=== PATIENT | female | born 1960 | race Caucasian/White ===

== ENCOUNTER 2023-01-10 09:31 | Outpatient (AMB) | payer OTHER, SELFPAY ==
--- NOTE | 2023-01-10 09:40 | A.OFFVIS_ITS ---
Intake Vital Signs 01/10/23 09:41 Height 5 ft 3 in Weight 186 lb 11.704 oz BMI 33.1 BP 100/58 L Blood Pressure Location Rt brachial Position Sitting Pulse 82 Pulse Source Pulse Oximeter Temp 97.5 F Temp Source Skin Pulse Oximetry (%) 96 Oxygen Delivery Method Room Air Intake Visit Reasons: Fibromyalgia Intake Note: New patient presents today for fibromyalgia, sciatic pain, and LLE pain. Previously seen by Dr. Bowser and Dr. Colunga. Notes in chart. c/o low back pain radiating down left leg to foot x 5+ months. 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 Crockett 62-year-old female, here for evaluation of joint pain specific to her left lower leg. She states that this started over a year ago and is not constant. Last week she was given prednisone for 1 week her PCP and was referred for physical therapy. The Prednisone did help the pain to her left lower lateral leg and across the dean, but she says she can feel it coming back now that she has stopped taking the prednisone. X-rays were done of her lower leg/dean area and came back normal per patient. The patient denies Raynaud's phenomenon, butterfly rash on face or other rashes; denies photosensitivity - getting sick or developing a rash from being out in the sun; denies blood or froth in urine; patient denies hx of SOB, chest pain. Patient denies hx of Carditis or Pleuritis. Patient denies any history of DVT/PE. The patient reports never have had to take aspirin or a blood thinner during the successful pregnancies. Denies fevers, excessive fatigue, unexplained weight-loss or weight-gain Denies: thinning hair or hair loss, hx of rashes; Denies: dry, itchy eyes, red burning eyes needing steroids to treat; dry mouth, mouth sores or ulcers; nose bleed; ringing in the ear Denies abdominal pain, blood or mucous in stool; nausea, vomiting and diarrhea , difficulty swallowing, she does have heartburn and takes Omeprazole prn. Denies morning stiffness lasting more than 20 mins. Malignancy screening: denies personal cancer hx. Colonoscopy : 11/2021 Mammogram 2022 [facility] Medical History (Updated 01/11/23 @ 12:39 by Alida Armstrong [facility]) Left sciatic nerve pain Sciatica associated with disorder of lumbar spine Hand pain, right Hand pain, left Primary osteoarthritis involving multiple joints Polyarthralgia Sleep apnea longterm (current) use of non-steroidal anti-inflammatories (nsaid) Sciatic leg pain Fibromyalgia Surgical History (Updated 01/10/23 @ 09:46 by AVRIL Burns) Hx of hysterectomy Family History (Updated 01/10/23 @ 09:44 by AVRIL Burns) Mother Arthritis Diabetes Social History (Updated 01/10/23 @ 09:44 by AVRIL Burns) Household Members: Children Alcohol intake: current Alcohol intake frequency: holidays/special occasions only Patient Tobacco Use Status: Never used Tobacco Current occupational status: employed Current occupation: [employer] at [employer] Female Reproductive History Menstrual Total pregnancies: 5 Ab spontaneous: 1 Review of Systems Const All systems reviewed & are unremarkable except as noted in HPI and below Physical Exam Vital Signs: Last Vital Signs Temp 97.5 F 01/10/23 09:41 Pulse 82 01/10/23 09:41 BP 100/58 L 01/10/23 09:41 Pulse Ox 96 01/10/23 09:41 Oxygen Delivery Method Room Air 01/10/23 09:41 BMI result Body Mass Index 33.1 APPEARANCE: Patient in no acute distress EYES no redness, pupils equal and reactive to light, eyelids normal EARS:? External ear normal, canal clear and tympanic membrane normal. NOSE/SINUS:? Airflow through both nares, no nasal discharge, no bleeding THROAT:? Oral mucosa moist, no ulcerations NECK:? No thyromegaly or masses, no adenopathy, trachea midline. HEART:? Regulrar rhythm, S1-S2 heard, no murmurs, rubs or gallops. LUNG:? Clear to percussion and auscultation ABD:? Normal bowel sounds, no organomegaly, masses or tenderness. EXTREMITIES:? No edema, no calf tenderness, normal peripheral pulses. NEURO:? Oriented and alert x3.? No focal weakness.? Reflexes symmetric.? Gait normal. SKIN:? There are no skin lesions evident. No objective signs of Raynaud's phenomenon. JOINT EXAM: Cervical Spine:.? Full range of motion without pain; no tenderness. Thoracic Spine:.? No scoliosis.? No tenderness on palpation. Lumbar Spine:.? Alignment normal.? Full range of motion without pain, but has stiffness, mild tenderness to left side Chest Wall:.? No tenderness, swelling, increased warmth or erythema. Hands:.? Normal pain-free range of motion with mild tenderness, but no swelling, increased warmth or erythema. 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 Wrists:.? Normal pain-free range of motion with mild tenderness, but no swelling, increased warmth or erythema. Elbows:. Normal pain-free range of motion without tenderness, swelling, increased warmth or erythema. Shoulders:.?? Full range of motion without pain. No weakness, swelling, increased warmth or erythema. Mild tenderness on palpation Hips:.? Full range of motion without pain. Hip bursa:.? No tenderness. Moderate tenderness to right gluteal muscle Knees:.?? Normal pain-free range of motion without tenderness, swelling, increased warmth or erythema.? There is no effusion or crepitation Ankles:.? Normal pain-free range of motion without tenderness, swelling, increased warmth or erythema. Feet:.? Normal pain-free range of motion without tenderness, swelling, increased warmth or erythema. Tender points:? No tenderness to digital palpation at the occiput, trapezius, second rib, lateral epicondyle, knees, greater trochanter and gluteal area bilaterally. ? Assessment & Plan Assessment & Plan (1) Left sciatic nerve pain: Code(s): M54.32 - Sciatica, left side (2) Sciatica associated with disorder of lumbar spine: Code(s): M53.86 - Other specified dorsopathies, lumbar region (3) Primary osteoarthritis involving multiple joints: Code(s): M15.9 - Polyosteoarthritis, unspecified (4) Polyarthralgia: Code(s): M25.50 - Pain in unspecified joint (5) Hand pain, left: Code(s): M79.642 - Pain in left hand (6) Hand pain, right: Code(s): M79.641 - Pain in right hand Plan #Left Sciatic Pain/Lumbar Spine: Ms. Crockett, 62 yoF here to be evaluated for pain, primarily to her left leg. After careful initial review of her history, and physical exam, it does not appear that her joint pains are caused by an underlying autoimmune or inflammatory etiology. Her main complaint today is the pain that travels down the back of her leg, extends from her knee cross her dean to her ankle at times. Her dean and ankle areas hurts the most. On exam there was a left gluteal tenderness and she does says that the pain sometimes travels down her legs from her lower back. Given this presentation, it is reasonable to say this is related to sciatica. I will obtain x-rays of her lumbar back to evaluate for lumbar DDD and nerve compression. Five days prednisone did improve the pain she feel on her lateral lower leg and states it is coming back since stopping prednisone. Patient also says that Tylenol does help her overall pain. I will also obtain some labs for rheumatology workup for additional evaluation. I have prescribed a 10 days course of prednisone. Perhaps there is some nerve irritation that was helped by the prednisone before. She was also referred to PT by her PCP and I agree with this course of action. I discussed with patient that sometimes PT can increase the discomfort, but she will see the benefit if she push through the initial discomfort and also to continue doing the recommended exercises at home. 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 She does have OA to the hands evidenced by prominent [place] nodes on PE with mild tenderness. She does say that her hands sometimes feel stiff in the morning but not more than 10-15 minutes at a time. I will obtain Hand Xrays for further evaluation for any indication of osteopenia, erosions that can occur in the context of chronic inflammation. Patient complained that sometimes she drops things because her hands feel weak to hold on to them. I demonstrated exercises that can help to strengthen the intra osseous muscles and improve fashion styling intern strength. Will consider EMG studies if she becomes bothered by numbness and tingling. Orders: Orders ARIADNE Reflex Titer and Pattern 01/10/23 M15.9 - Polyosteoarthritis, unspecified, M25.50 - Pain in unspecified joint Complement C4 01/10/23 M15.9 - Polyosteoarthritis, unspecified, M25.50 - Pain in unspecified joint, M54.30 - Sciatica, unspecified side Creatine Kinase Total 01/10/23 M15.9 - Polyosteoarthritis, unspecified, M25.50 - Pain in unspecified joint, M54.30 - Sciatica, unspecified side Comprehensive Met. Panel 01/10/23 M15.9 - Polyosteoarthritis, unspecified, M25.50 - Pain in unspecified joint, M54.30 - Sciatica, unspecified side Erythrocyte Sedimentation Rate 01/10/23 M15.9 - Polyosteoarthritis, unspecified, M25.50 - Pain in unspecified joint, M54.30 - Sciatica, unspecified side C Reactive Protein 01/10/23 M15.9 - Polyosteoarthritis, unspecified, M25.50 - Pain in unspecified joint, M54.30 - Sciatica, unspecified side Cyclic Citrullinated Peptide 01/10/23 M15.9 - Polyosteoarthritis, unspecified, M25.50 - Pain in unspecified joint, M54.30 - Sciatica, unspecified side XR hand LT min 3V 01/10/23 M15.9 - Polyosteoarthritis, unspecified, M79.642 - Pain in left hand XR hand RT min 3V 01/10/23 M15.9 - Polyosteoarthritis, unspecified, M79.641 - Pain in right hand Complement C3 01/10/23 M15.9 - Polyosteoarthritis, unspecified, M25.50 - Pain in unspecified joint, M54.30 - Sciatica, unspecified side Complete Blood Count Auto Diff 01/10/23 M15.9 - Polyosteoarthritis, unspecified, M25.50 - Pain in unspecified joint, M54.30 - Sciatica, unspecified side Anti Extractable Nuclear Ag 01/10/23 M15.9 - Polyosteoarthritis, unspecified, M25.50 - Pain in unspecified joint, M54.30 - Sciatica, unspecified side Uric Acid 01/10/23 M15.9 - Polyosteoarthritis, unspecified, M25.50 - Pain in unspecified joint, M54.30 - Sciatica, unspecified side Rheumatoid Factor 01/10/23 M15.9 - Polyosteoarthritis, unspecified, M25.50 - Pain in unspecified joint, M54.30 - Sciatica, unspecified side XR lumbar spine 2-3V 01/10/23 M15.9 - Polyosteoarthritis, unspecified, M53.86 - Other specified dorsopathies, lumbar region Medications: New prednisone 2 tablets per day for 7 days 1 tablet per day for 7 days; see taper instructions 30 tabs 0RF Coding Level of Care Code New Pt Level 4 (12871) Diagnoses Left sciatic nerve pain M54.32 Sciatica associated with disorder of lumbar spine M53.86 Primary osteoarthritis involving multiple joints M15.9 Polyarthralgia M25.50 Hand pain, left M79.642 Hand pain, right M79.641
[2023-01-10 09:41] VITALS: BP 100/58; PULSE 82; TEMP 36.4; O2SAT 96; BMI 33.1
== END 2023-01-10 10:49 | disposition home or self-care (01) ==
PROVIDERS: PCP Family Medicine; Visit Provider Nurse Practitioner Family
DX: M54.32 Sciatica, left side (principal); M53.86 Other specified dorsopathies, lumbar region; M15.9 Polyosteoarthritis, unspecified; M25.50 Pain in unspecified joint; M79.642 Pain in left hand; M79.641 Pain in right hand
CPT/HCPCS: 99204

== ENCOUNTER 2023-01-10 09:31 | Outpatient (REF) | payer OTHER, SELFPAY ==
--- NOTE | ~2023-01-10 | XR_ITS ---
EXAMINATION: XR HAND, RIGHT CLINICAL INFORMATION: Polyosteoarthritis. COMPARISON: None available. TECHNIQUE: PA, lateral, and oblique views of the right hand. FINDINGS: There is bony demineralization. There is a mild ulnar positive variance. There is moderate arthritic change of the second distal interphalangeal joints and marked arthritic change is seen of the fourth and fifth distal interphalangeal joints, with central erosions. There is mild arthritic change of the third and fifth proximal interphalangeal joints. No fracture or dislocation is seen. The proximal and distal carpal rows are intact. There is no focal soft tissue swelling, gas or foreign body. XR/XR hand LT min 3V IMPRESSION: There are arthritic changes of the second through fifth fingers, as detailed. Central erosions of the fourth and fifth distal interphalangeal joints raise the possibility of erosive osteoarthritis, rheumatoid arthritis or psoriasis. Please correlate clinically. EXAMINATION: XR HAND, LEFT CLINICAL INFORMATION: Polyosteoarthritis. COMPARISON: None available. TECHNIQUE: PA, lateral, and oblique views of the left hand. FINDINGS: There is bony demineralization. There is a mild ulnar positive variance. There is mild to moderate osteoarthritic change of the second distal interphalangeal joint. There is marked arthritic change of the third through fifth distal interphalangeal joints. Central erosions are noted of the third and fourth distal interphalangeal joints. There is minimal arthritic change of the second through fourth proximal interphalangeal joints. No fracture or dislocation is seen. The proximal and distal carpal rows are intact. There is no focal soft tissue swelling, gas or foreign body. IMPRESSION: There are arthritic changes of the second through fifth fingers, as detailed. Central erosions of the third and fourth distal interphalangeal joints raise the possibility of erosive osteoarthritis, rheumatoid arthritis or psoriasis. Please correlate clinically.
--- NOTE | ~2023-01-10 | XR_ITS ---
EXAMINATION: XR HAND, RIGHT CLINICAL INFORMATION: Polyosteoarthritis. COMPARISON: None available. TECHNIQUE: PA, lateral, and oblique views of the right hand. FINDINGS: There is bony demineralization. There is a mild ulnar positive variance. There is moderate arthritic change of the second distal interphalangeal joints and marked arthritic change is seen of the fourth and fifth distal interphalangeal joints, with central erosions. There is mild arthritic change of the third and fifth proximal interphalangeal joints. No fracture or dislocation is seen. The proximal and distal carpal rows are intact. There is no focal soft tissue swelling, gas or foreign body. XR/XR hand RT min 3V IMPRESSION: There are arthritic changes of the second through fifth fingers, as detailed. Central erosions of the fourth and fifth distal interphalangeal joints raise the possibility of erosive osteoarthritis, rheumatoid arthritis or psoriasis. Please correlate clinically. EXAMINATION: XR HAND, LEFT CLINICAL INFORMATION: Polyosteoarthritis. COMPARISON: None available. TECHNIQUE: PA, lateral, and oblique views of the left hand. FINDINGS: There is bony demineralization. There is a mild ulnar positive variance. There is mild to moderate osteoarthritic change of the second distal interphalangeal joint. There is marked arthritic change of the third through fifth distal interphalangeal joints. Central erosions are noted of the third and fourth distal interphalangeal joints. There is minimal arthritic change of the second through fourth proximal interphalangeal joints. No fracture or dislocation is seen. The proximal and distal carpal rows are intact. There is no focal soft tissue swelling, gas or foreign body. IMPRESSION: There are arthritic changes of the second through fifth fingers, as detailed. Central erosions of the third and fourth distal interphalangeal joints raise the possibility of erosive osteoarthritis, rheumatoid arthritis or psoriasis. Please correlate clinically.
--- NOTE | ~2023-01-10 | XR_ITS ---
EXAMINATION: XR HAND, RIGHT CLINICAL INFORMATION: Polyosteoarthritis. COMPARISON: None available. TECHNIQUE: PA, lateral, and oblique views of the right hand. FINDINGS: There is bony demineralization. There is a mild ulnar positive variance. There is moderate arthritic change of the second distal interphalangeal joints and marked arthritic change is seen of the fourth and fifth distal interphalangeal joints, with central erosions. There is mild arthritic change of the third and fifth proximal interphalangeal joints. No fracture or dislocation is seen. The proximal and distal carpal rows are intact. There is no focal soft tissue swelling, gas or foreign body. XR/XR lumbar spine 2-3V IMPRESSION: There are arthritic changes of the second through fifth fingers, as detailed. Central erosions of the fourth and fifth distal interphalangeal joints raise the possibility of erosive osteoarthritis, rheumatoid arthritis or psoriasis. Please correlate clinically. EXAMINATION: XR HAND, LEFT CLINICAL INFORMATION: Polyosteoarthritis. COMPARISON: None available. TECHNIQUE: PA, lateral, and oblique views of the left hand. FINDINGS: There is bony demineralization. There is a mild ulnar positive variance. There is mild to moderate osteoarthritic change of the second distal interphalangeal joint. There is marked arthritic change of the third through fifth distal interphalangeal joints. Central erosions are noted of the third and fourth distal interphalangeal joints. There is minimal arthritic change of the second through fourth proximal interphalangeal joints. No fracture or dislocation is seen. The proximal and distal carpal rows are intact. There is no focal soft tissue swelling, gas or foreign body. IMPRESSION: There are arthritic changes of the second through fifth fingers, as detailed. Central erosions of the third and fourth distal interphalangeal joints raise the possibility of erosive osteoarthritis, rheumatoid arthritis or psoriasis. Please correlate clinically.
== END 2023-01-10 09:32 | disposition home or self-care (01) ==
LOC: HO.XRAY 09:31
PROVIDERS: PCP Family Medicine; Visit Provider Nurse Practitioner Family
DX: M15.9 Polyosteoarthritis, unspecified (principal); M79.642 Pain in left hand; M79.641 Pain in right hand; M53.86 Other specified dorsopathies, lumbar region; M54.32 Sciatica, left side
CPT/HCPCS: 72100; 73130

== ENCOUNTER 2023-01-10 10:58 | Outpatient (REF) | payer OTHER, SELFPAY ==
[2023-01-10 13:05] LABS: MANUAL DIFF FLAG NO
[2023-01-10 13:17] LABS: Basophils Absolute Auto 0.1 X10*3/uL (0.0-0.2); Basophils Percent Auto 1.2 % (0-2); Eosinophils Absolute Auto 0.3 X10*3/uL (0.0-0.4); Eosinophils Percent Auto 3.4 % (0-4); Hematocrit 40.7 % (37.0-47.0); Hemoglobin 12.5 g/dl (12.0-16.0); Imm Gran Abs Auto 0.02 X10*3/uL (0.00-0.03); Imm Gran Pct Auto 0.2 % (0.0-0.4); Lymphocytes Absolute Auto 2.3 X10*3/uL (1.2-4.9); Lymphocytes Percent Auto 28.5 % (20-40); Mean Corpuscular HGB Conc 30.7 g/dl (31.0-35.0); Mean Corpuscular Hemoglobin 26.7 pg (27.0-33.0); Mean Platelet Volume 10.7 fL (9.4-12.3); Monocytes Absolute Auto 0.5 X10*3/uL (0.1-1.2); Monocytes Percent Auto 6.4 % (2-11); Neutrophils Absolute Auto 4.8 x10*3/uL (2.0-8.3); Neutrophils Percent Auto 60.3 % (45-73); Platelet Count 245 X10*3/uL (160-400); Red Blood Count 4.68 X10*6/uL (4.20-5.50); Red Cell Distribution Width 15.1 % (11.0-16.0)
[2023-01-10 13:35] LABS: Alanine Aminotransferase 29 U/L (0-31); Albumin Level 4.4 g/dL (3.5-5.0); Alkaline Phosphatase 118 U/L (39-117); Anion Gap 13 (12-20); Aspartate Amino Transferase 22 U/L (5-31); Bilirubin Total 0.2 mg/dL (0.0-1.0); Blood Urea Nitrogen 13 mg/dL (9-16); C Reactive Protein 0.48 mg/dL (< or = 0.50); Calcium 9.3 mg/dL (8.4-10.2); Carbon Dioxide 28 mmol/L (22-29); Chloride 105 mmol/L (96-108); Estimated Glomerular Filt Rate > 60; Glucose Random 96 mg/dL (60-115); Potassium 3.5 mmol/L (3.3-5.1); Sodium 142 mmol/L (135-145); Total Protein 7.2 g/dL (6.5-8.0)
[2023-01-10 13:43] LABS: Rheumatoid Factor < 13.0 IU/mL (<15.0)
[2023-01-10 14:09] LABS: Erythrocyte Sedimentation Rate 16 MM/HR (0-20)
[2023-01-11 13:29] LABS: Cyclic Citrullinated Peptide <16 UNITS
[2023-01-11 17:28] LABS: SM/Ribonucleoprotein Ab <1.0 NEG AI (<1.0 NEG); Smith Protein <1.0 NEG AI (<1.0 NEG)
[2023-01-11 18:09] LABS: Complement C3 151 mg/dL (83-193)
[2023-01-13 11:40] LABS: Anti Nuclear Antibody Screen NEGATIVE (NEGATIVE)
== END 2023-01-10 10:59 | disposition home or self-care (01) ==
LOC: HO.10HDL 10:58
PROVIDERS: Visit Provider Nurse Practitioner Family
DX: M54.30 Sciatica, unspecified side (principal); M25.50 Pain in unspecified joint; M15.9 Polyosteoarthritis, unspecified; M53.86 Other specified dorsopathies, lumbar region; M79.641 Pain in right hand; M79.642 Pain in left hand
CPT/HCPCS: 36415; 80053; 82550; 84550; 85025; 85652; 86038; 86140; 86160; 86200; 86235; 86431

== ENCOUNTER 2023-02-11 08:24 | Outpatient (AMB) | payer OTHER, SELFPAY ==
[2023-02-11 09:49] VITALS: BP 132/74; PULSE 94; TEMP 36; O2SAT 98; BMI 33.5
--- NOTE | 2023-02-11 09:49 | MHC.OFFVIS ---
Intake Vital Signs 02/11/23 09:49 Height 5 ft 3 in Weight 189 lb 6.033 oz BMI 33.5 BP 132/74 Blood Pressure Location Rt brachial Position Sitting Pulse 94 Pulse Source Pulse Oximeter Temp 96.8 F Temp Source Skin Pulse Oximetry (%) 98 Intake Visit Reasons: FM Intake Note: Patient presents today for fibromyalgia. Labs up to date. Accompanied by: Daughter Allergies No Known Allergies Allergy (Verified 02/11/23 09:51) HPI HPI Comments History of Present Illness Details Mrs. Crockett 62-year-old female, here for follow-up of joint pain specific to her left lower leg and hands. The patient reports that the prednisone was very helpful she felt like she could do much work and walked without limping, especially when she gets up or sit down. The patient also said her hands did not hurt and the pain down her left leg was decreased a lot. She has felt an increse in her discomfort after she stopped taking the prednisone. Prior Visit: Mrs. Keira Hatfield-year-old female, here for evaluation of joint pain specific to her left lower leg. She states that this started over a year ago and is not constant. Last week she was given prednisone for 1 week her PCP and was referred for physical therapy. The Prednisone did help the pain to her left lower lateral leg and across the dean, but she says she can feel it coming back now that she has stopped taking the prednisone. X-rays were done of her lower leg/dean area and came back normal per patient. The patient denies Raynaud's phenomenon, butterfly rash on face or other rashes; denies photosensitivity - getting sick or developing a rash from being out in the sun; denies blood or froth in urine; patient denies hx of SOB, chest pain. Patient denies hx of Carditis or Pleuritis. Patient denies any history of DVT/PE. The patient reports never have had to take aspirin or a blood thinner during the successful pregnancies. Denies fevers, excessive fatigue, unexplained weight-loss or weight-gain Denies: thinning hair or hair loss, hx of rashes; Denies: dry, itchy eyes, red burning eyes needing steroids to treat; dry mouth, mouth sores or ulcers; nose bleed; ringing in the ear Denies abdominal pain, blood or mucous in stool; nausea, vomiting and diarrhea , difficulty swallowing, she does have heartburn and takes Omeprazole prn. Denies morning stiffness lasting more than 20 mins. Malignancy screening: denies personal cancer hx. Colonoscopy : 11/2021 Mammogram 2022 [facility] Medical History (Updated 02/11/23 @ 13:45 by Alida Armstrong [facility]) Piriformis syndrome of left side Inflammatory arthritis Left sciatic nerve pain Sciatica associated with disorder of lumbar spine Hand pain, right Hand pain, left Primary osteoarthritis involving multiple joints Polyarthralgia Sleep apnea shelter (current) use of non-steroidal anti-inflammatories (nsaid) Sciatic leg pain Fibromyalgia Surgical History (Updated 01/10/23 @ 09:46 by AVRIL Burns) Hx of hysterectomy Family History Mother Arthritis Diabetes Social History (Updated 01/10/23 @ 09:44 by AVRIL Burns) Household Members: Children Alcohol intake: current Alcohol intake frequency: holidays/special occasions only Patient Tobacco Use Status: Never used Tobacco Current occupational status: employed Current occupation: [employer] at [employer] Review of Systems Const All systems reviewed & are unremarkable except as noted in HPI and below Physical Exam Vital Signs: Last Vital Signs Temp 96.8 F 02/11/23 09:49 BMI result Body Mass Index 33.5 APPEARANCE: Patient in no acute distress, well nourished and groomed HEART:? Regulrar rhythm, S1-S2 heard, no murmurs, rubs or gallops. LUNG:? Clear to percussion and auscultation EXTREMITIES:? No edema, no calf tenderness, normal peripheral pulses. NEURO:? Oriented and alert x3.? No focal weakness.? Reflexes symmetric.? Gait normal. JOINT EXAM: Cervical Spine:.? Full range of motion without pain; no tenderness. Thoracic Spine:.? No scoliosis.? No tenderness on palpation. Lumbar Spine:.? Alignment normal.? Full range of motion without pain, but has stiffness, mild tenderness to left side Chest Wall:.? No tenderness, swelling, increased warmth or erythema. Hands:.? Normal range of motion with mild tenderness, but no swelling or increased warmth. Able to make a full fist and has a good finished carpet inspector strength. Herberdens across all DIPs with some erythema and tenderness. Wrists:.? Normal pain-free range of motion with mild tenderness, but no swelling, increased warmth or erythema. Elbows:. Normal pain-free range of motion without tenderness, swelling, increased warmth or erythema. Shoulders:.?? Full range of motion without pain. No weakness, swelling, increased warmth or erythema. Mild tenderness on palpation Hip bursa:.? No tenderness. Mild Tenderness to right glute, Moderate tenderness to Left gluteal muscle Knees:.?? Normal pain-free range of motion without tenderness, swelling, increased warmth or erythema.? There is no effusion or crepitation Ankles:.? Normal pain-free range of motion without tenderness, swelling, increased warmth or erythema. Feet:.? Normal pain-free range of motion without tenderness, swelling, increased warmth or erythema. Tender points:? No tenderness to digital palpation at the occiput, trapezius, second rib, lateral epicondyle, knees, greater trochanter and gluteal area bilaterally. ? Office Procedures Joint Injection/Drain Joint Injection/Drain Prep: site was prepped using aseptic technique Injected: 80 mg of, Kenalog, with 1 mL of and 1% plain lidocaine Approach Used: anterolateral Procedure: The patient tolerated the procedure well Coding - Sternocleidomastoid/Piriformis Procedure code (CPT) selection complete Results Reviewed Results Reviewed: Laboratory Tests 01/10/23 11:05 MCH 26.7 L MCHC 30.7 L ESR 16 BUN 13 Creatinine 0.73 Uric Acid 5.0 AST 22 ALT 29 Alkaline Phosphatase 118 H C-Reactive Protein 0.48 Rheumatoid Factor < 13.0 Cycl Citrul Peptide IgG <16 January 10 2023 EXAMINATION: XR HAND, RIGHT CLINICAL INFORMATION: Polyosteoarthritis. COMPARISON: None available. TECHNIQUE: PA, lateral, and oblique views of the right hand. FINDINGS: There is bony demineralization. There is a mild ulnar positive variance. There is moderate arthritic change of the second distal interphalangeal joints and marked arthritic change is seen of the fourth and fifth distal interphalangeal joints, with central erosions. There is mild arthritic change of the third and fifth proximal interphalangeal joints. No fracture or dislocation is seen. The proximal and distal carpal rows are intact. There is no focal soft tissue swelling, gas or foreign body. XR/XR hand RT min 3V IMPRESSION: There are arthritic changes of the second through fifth fingers, as detailed. Central erosions of the fourth and fifth distal interphalangeal joints raise the possibility of erosive osteoarthritis, rheumatoid arthritis or psoriasis. Please correlate clinically. EXAMINATION: XR HAND, LEFT CLINICAL INFORMATION: Polyosteoarthritis. COMPARISON: None available. TECHNIQUE: PA, lateral, and oblique views of the left hand. FINDINGS: There is bony demineralization. There is a mild ulnar positive variance. There is mild to moderate osteoarthritic change of the second distal interphalangeal joint. There is marked arthritic change of the third through fifth distal interphalangeal joints. Central erosions are noted of the third and fourth distal interphalangeal joints. There is minimal arthritic change of the second through fourth proximal interphalangeal joints. No fracture or dislocation is seen. The proximal and distal carpal rows are intact. There is no focal soft tissue swelling, gas or foreign body. IMPRESSION: There are arthritic changes of the second through fifth fingers, as detailed. Central erosions of the third and fourth distal interphalangeal joints raise the possibility of erosive osteoarthritis, rheumatoid arthritis or psoriasis. Please correlate clinically. Assessment & Plan Assessment & Plan (1) Seronegative inflammatory arthritis: Code(s): M13.80 - Other specified arthritis, unspecified site (2) Left sciatic nerve pain: Code(s): M54.32 - Sciatica, left side (3) Piriformis syndrome of left side: Code(s): G57.02 - Lesion of sciatic nerve, left lower limb (4) Primary osteoarthritis involving multiple joints: Code(s): M15.9 - Polyosteoarthritis, unspecified (5) Long-term use of immunosuppressant medication: Code(s): Z79.60 - shelter (current) use of unspecified immunomodulators and immunosuppressants Plan #Left Prirformis Muscle/Sciatic Pain: Ms. Crockett, 62 yoF here to be evaluated for pain, primarily to her left leg and hands. Today the patient has marked tenderness to her piriformis muscle on the left side. It seem reasonable that I give her a cortisone injection to help ease her discomfort. We are still waiting for the results of her lumbar x-ray. I encouraged patient to follow through with doing stretches as demonstrated on you to. Her daughter will help her to find some appropriate videos so she can follow. Patient has changed her mind about going to physical therapy saying that it will cause her more discomfort and he really does not help. I reminded patient that this exercises that she would learn at physical therapy would only be beneficial if she maintains the routine at home. Patient also says that Tylenol does help her overall pain. 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 Slight ulnar deviation were also identified in some the IP joints. Though the patient has normal range acute inflammatory markers, it may be beneficial to start her on immunomodulator such as mass of methotrexate or hydroxychloroquine. We will treat as a seronegative Inflammatory arthritis and start on MTX 5 pills QW and reassess with the goal to slow down and reduce the damage to her hands. 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 I discussed with patient the possible side effects to include but are not limited to blood dyscrasias, hepatoxicity, Nausea, vomiting and diarrhea, hair loss, fatigue and brain fog. I advised patient not to be deterred by what she will read about the medication, as we closely monitor and will stop the medication if indicated. Orders: Orders Aspartate Amino Transferase 6 Weeks M19.90 - Unspecified osteoarthritis, unspecified site, Z79.899 - Other long term acute care registered nurse (current) drug therapy Erythrocyte Sedimentation Rate 6 Weeks M19.90 - Unspecified osteoarthritis, unspecified site C Reactive Protein 6 Weeks M19.90 - Unspecified osteoarthritis, unspecified site Alanine Aminotransferase 6 Weeks M19.90 - Unspecified osteoarthritis, unspecified site, Z79.899 - Other [facility] (current) drug therapy Complete Blood Count Auto Diff 6 Weeks M19.90 - Unspecified osteoarthritis, unspecified site, Z79.899 - Other long term acute care registered nurse (current) drug therapy AMB Joint Injection/Aspiration Today G57.02 - Lesion of sciatic nerve, left lower limb, M54.32 - Sciatica, left side Medications: New methotrexate sodium 5 tablets orally every week; 30 tabs 0RF M19.90 - Unspecified osteoarthritis, unspecified site folic acid 1 mg PO DAILY 90 tabs 0RF prednisone 5 mg PO DIRECTED 30 tabs 0RF M19.90 - Unspecified osteoarthritis, unspecified site Coding Level of Care Code Est Pt Level 4 (04996) Diagnoses Seronegative inflammatory arthritis M13.80 Left sciatic nerve pain M54.32 Piriformis syndrome of left side G57.02 Primary osteoarthritis involving multiple joints M15.9 Long-term use of immunosuppressant medication Z79.60 CPT Codes Coding - Joint 3: 63664 - Sternocleidomastoid/Piriformis ([id number])
== END 2023-02-11 10:39 | disposition home or self-care (01) ==
PROVIDERS: PCP Family Medicine; Visit Provider Nurse Practitioner Family
DX: M79.7 Fibromyalgia (principal); G57.02 Lesion of sciatic nerve, left lower limb; M15.8 Other polyosteoarthritis; Z79.60 Long term (current) use of unspecified immunomodulators and immunosuppressants
CPT/HCPCS: 20552; 99214

== ENCOUNTER → 2023-02-11 08:24 | Outpatient (BNVA) | payer OTHER, SELFPAY | PROVIDERS: PCP Family Medicine; Visit Provider Nurse Practitioner Family | DX: M13.80 Other specified arthritis, unspecified site (principal); G57.02 Lesion of sciatic nerve, left lower limb; M79.18 Myalgia, other site; M79.662 Pain in left lower leg; Z79.60 Long term (current) use of unspecified immunomodulators and immunosuppressants | CPT/HCPCS: 20552; J3301 ==

== ENCOUNTER 2023-03-18 10:34 | Outpatient (REF) | payer OTHER, SELFPAY ==
[2023-03-18 10:43] LABS: MANUAL DIFF FLAG NO
[2023-03-18 11:15] LABS: Basophils Percent Auto 0.5 % (0-2); Eosinophils Absolute Auto 0.1 X10*3/uL (0.0-0.4); Eosinophils Percent Auto 1.1 % (0-4); Hematocrit 45.7 % (37.0-47.0); Hemoglobin 14.2 g/dl (12.0-16.0); Imm Gran Abs Auto 0.03 X10*3/uL (0.00-0.03); Imm Gran Pct Auto 0.4 % (0.0-0.4); Lymphocytes Absolute Auto 1.6 X10*3/uL (1.2-4.9); Mean Corpuscular HGB Conc 31.1 g/dl (31.0-35.0); Mean Corpuscular Hemoglobin 26.8 pg (27.0-33.0); Mean Corpuscular Volume 86.4 fL (80.0-98.0); Monocytes Absolute Auto 0.5 X10*3/uL (0.1-1.2); Neutrophils Absolute Auto 5.2 x10*3/uL (2.0-8.3); Platelet Count 250 X10*3/uL (160-400); Red Blood Count 5.29 X10*6/uL (4.20-5.50); Red Cell Distribution Width 17.8 % (11.0-16.0); White Blood Count 7.5 X10*3/uL (4.8-10.8)
[2023-03-18 12:01] LABS: Erythrocyte Sedimentation Rate 12 MM/HR (0-20)
[2023-03-18 12:09] LABS: Alanine Aminotransferase 29 U/L (0-31); Aspartate Amino Transferase 18 U/L (5-31); C Reactive Protein 0.38 mg/dL (< or = 0.50)
== END 2023-03-18 10:35 | disposition home or self-care (01) ==
LOC: HO.LAB 10:34
PROVIDERS: Visit Provider Nurse Practitioner Family
DX: M19.90 Unspecified osteoarthritis, unspecified site (principal); Z79.899 Other long term (current) drug therapy
CPT/HCPCS: 36415; 84450; 84460; 85025; 85652; 86140

== ENCOUNTER 2023-03-25 09:13 | Outpatient (AMB) | payer OTHER, SELFPAY ==
--- NOTE | 2023-03-25 09:22 | A.OFFVIS_ITS ---
Intake Vital Signs 03/25/23 09:24 Height 5 ft 3 in Weight 188 lb 4.396 oz BMI 33.3 BP 110/80 Blood Pressure Location Lt brachial Position Sitting Pulse 68 Pulse Source Pulse Oximeter Temp 97.4 F Temp Source Skin Pulse Oximetry (%) 99 Oxygen Delivery Method Room Air Intake Visit Reasons: Inflammatory Arthritis Intake Note: Patient last seen 02/11/23 by Patti, presents today for follow up and test results. Reports starting MTX. Pourer Off Required: No Accompanied by: Daughter Allergies No Known Allergies Allergy (Verified 03/25/23 09:23) HPI HPI Comments History of Present Illness Details Mrs. Crockett 62-year-old female, here for follow-up of joint pain specific to her left lower leg and hands. At last visit. patient was diagnosed to have seronegative inflammatory arthritis and was started on MTX with a prednisone bridge. She is doing well with no hand pain or tenderness and only has some neuropathic foot pain which she says is help by Gabapentin. She also had a spine injection since last visit. She continues to say she feels a lot better and can work without stopping. Prior Visit: Mrs. Crockett 62-year-old female, here for evaluation of joint pain specific to her left lower leg. She states that this started over a year ago and is not constant. Last week she was given prednisone for 1 week her PCP and was referred for physical therapy. The Prednisone did help the pain to her left lower lateral leg and across the dean, but she says she can feel it coming back now that she has stopped taking the prednisone. X-rays were done of her lower leg/dean area and came back normal per patient. The patient denies Raynaud's phenomenon, butterfly rash on face or other rashes; denies photosensitivity - getting sick or developing a rash from being out in the sun; denies blood or froth in urine; patient denies hx of SOB, chest pain. Patient denies hx of Carditis or Pleuritis. Patient denies any history of DVT/PE. The patient reports never have had to take aspirin or a blood thinner during the successful pregnancies. Denies fevers, excessive fatigue, unexplained weight-loss or weight-gain Denies: thinning hair or hair loss, hx of rashes; Denies: dry, itchy eyes, red burning eyes needing steroids to treat; dry mouth, mouth sores or ulcers; nose bleed; ringing in the ear Denies abdominal pain, blood or mucous in stool; nausea, vomiting and diarrhea , difficulty swallowing, she does have heartburn and takes Omeprazole prn. Denies morning stiffness lasting more than 20 mins. Malignancy screening: denies personal cancer hx. Colonoscopy : 11/2021 Mammogram 2022 [facility] Medical History (Updated 03/25/23 @ 10:24 by CK OlsonP-) Lumbar spondylolysis Seronegative inflammatory arthritis Piriformis syndrome of left side Inflammatory arthritis Left sciatic nerve pain Sciatica associated with disorder of lumbar spine Hand pain, right Hand pain, left Primary osteoarthritis involving multiple joints Polyarthralgia Sleep apnea [facility] (current) use of non-steroidal anti-inflammatories (nsaid) Sciatic leg pain Fibromyalgia Surgical History Hx of hysterectomy Family History Mother Arthritis Diabetes Social History Household Members: Children Alcohol intake: current Alcohol intake frequency: holidays/special occasions only Patient Tobacco Use Status: Never used Tobacco Current occupational status: employed Current occupation: [employer] Reviews & Information [facility] Review of Systems Const All systems reviewed & are unremarkable except as noted in HPI and below Physical Exam Vital Signs: Last Vital Signs Temp 97.4 F 03/25/23 09:24 BMI result Body Mass Index 33.3 APPEARANCE: Patient in no acute distress, well nourished and groomed HEART:? Regulrar rhythm, S1-S2 heard, no murmurs, rubs or gallops. LUNG:? Clear to percussion and auscultation EXTREMITIES:? No edema, no calf tenderness, normal peripheral pulses. NEURO:? Oriented and alert x3.? No focal weakness.? Reflexes symmetric.? Gait normal. JOINT EXAM: Cervical Spine:.? Full range of motion without pain; no tenderness. Thoracic Spine:.? No scoliosis.? No tenderness on palpation. Lumbar Spine:.? Alignment normal.? Full range of motion without pain, but has stiffness, mild tenderness to left side Chest Wall:.? No tenderness, swelling, increased warmth or erythema. Hands:.? Normal range of motion with no more mild tenderness, and no swelling or increased warmth. Able to make a full fist and has a good case advocate strength. Herberdens across all DIPs with no more erythema and tenderness. Wrists:.? Normal pain-free range of motion with no mild tenderness, but no swelling, increased warmth or erythema. Elbows:. Normal pain-free range of motion without tenderness, swelling, increased warmth or erythema. Shoulders:.?? Full range of motion without pain. No weakness, swelling, increased warmth or erythema. Mild tenderness on palpation Hip bursa:.? No more tenderness. Mild Tenderness to right glute, No more Moderate tenderness to Left gluteal muscle Knees:.?? Normal pain-free range of motion without tenderness, swelling, increased warmth or erythema.? There is no effusion or crepitation Ankles:.? Normal pain-free range of motion without tenderness, swelling, increased warmth or erythema. Feet:.? Normal pain-free range of motion without tenderness, swelling, increased warmth or erythema. Tender points:? No tenderness to digital palpation at the occiput, trapezius, second rib, lateral epicondyle, knees, greater trochanter and gluteal area bilaterally. ? Assessment & Plan Assessment & Plan (1) Seronegative inflammatory arthritis: Code(s): M13.80 - Other specified arthritis, unspecified site (2) Left sciatic nerve pain: Code(s): M54.32 - Sciatica, left side (3) Piriformis syndrome of left side: Code(s): G57.02 - Lesion of sciatic nerve, left lower limb (4) Primary osteoarthritis involving multiple joints: Code(s): M15.9 - Polyosteoarthritis, unspecified (5) Long-term use of immunosuppressant medication: Code(s): Z79.60 - computer terminal operator (current) use of unspecified immunomodulators and immunosuppressants (6) Lumbar spondylolysis: Code(s): M43.06 - Spondylolysis, lumbar region Plan #Left Prirformis Muscle/Sciatic Pain/Lumbar Spondylosis: Ms. Crockett, 62 yoF here to be evaluated for pain, primarily to her left leg and hands. The marked tend erness to her piriformis muscle on the left side has resolved and was help by the cortisone injection. The results of her lumbar x-ray did show moderate DDD. She is also helped by recent lumbar injection. I encouraged patient to follow through with doing stretches as demonstrated. Her daughter will help her to find some appropriate videos so she can follow. She can continue with Tylenol as needed. 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 X-ray has reaffirmed that she does have some osteoarthritis to her hand but has also revealed bone demineralization and central erosions that are seen in the context of an inflammatory arthritis. Slight ulnar deviation were also identified in some the IP joints. We will continue with the goal to slow down and reduce further erosions to her hand IP joints. I discuss with patients that flares are possible sometimes after a hard work day or even the weather. She can call in for a prednisone taper to help with flares. 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 We will continue to evaluate LFTs and CBC. I reiterated with patient the possible side effects to include but are not limited to blood dyscrasias, hepatoxicity, Nausea, vomiting and diarrhea, hair loss, fatigue and brain fog. I spent 20 minutes with reviewing chart, evaluating patient and documenting and prescribing Orders: Orders C Reactive Protein Today M13.80 - Other specified arthritis, unspecified site Aspartate Amino Transferase Today M13.80 - Other specified arthritis, unspecified site, Z79.899 - Other [facility] (current) drug therapy Erythrocyte Sedimentation Rate Today M13.80 - Other specified arthritis, unspecified site Alanine Aminotransferase Today M13.80 - Other specified arthritis, unspecified site, Z79.899 - Other [facility] (current) drug therapy Complete Blood Count Auto Diff Today M13.80 - Other specified arthritis, unspecified site, Z79.899 - Other [facility] (current) drug therapy Creatinine Today M13.80 - Other specified arthritis, unspecified site, Z79.899 - Other termite technician (current) drug therapy Medications: Refilled methotrexate sodium 5 tablets orally every week; 90 tabs 1RF M19.90 - Unspecified osteoarthritis, unspecified site Coding Level of Care Code Est Pt Level 3 (73237) Diagnoses Seronegative inflammatory arthritis M13.80 Left sciatic nerve pain M54.32 Piriformis syndrome of left side G57.02 Primary osteoarthritis involving multiple joints M15.9 Long-term use of immunosuppressant medication Z79.60 Lumbar spondylolysis M43.06
[2023-03-25 09:24] VITALS: BP 110/80; PULSE 68; TEMP 36.3; O2SAT 99; BMI 33.3
== END 2023-03-25 09:52 | disposition home or self-care (01) ==
PROVIDERS: PCP Family Medicine; Visit Provider Nurse Practitioner Family
DX: M15.9 Polyosteoarthritis, unspecified (principal); M54.32 Sciatica, left side; Z79.60 Long term (current) use of unspecified immunomodulators and immunosuppressants; M43.06 Spondylolysis, lumbar region
CPT/HCPCS: 99214

== ENCOUNTER → 2023-03-25 09:13 | Outpatient (BNVA) | payer OTHER, SELFPAY | PROVIDERS: PCP Family Medicine; Visit Provider Nurse Practitioner Family ==

== ENCOUNTER 2023-06-14 14:33 | Outpatient (REF) | payer OTHER, SELFPAY ==
[2023-06-14 14:52] LABS: MANUAL DIFF FLAG NO
[2023-06-14 15:32] LABS: Basophils Absolute Auto 0.1 X10*3/uL (0.0-0.2); Basophils Percent Auto 1.6 % (0-2); Eosinophils Absolute Auto 0.3 X10*3/uL (0.0-0.4); Hemoglobin 12.3 g/dl (12.0-16.0); Imm Gran Abs Auto 0.01 X10*3/uL (0.00-0.03); Imm Gran Pct Auto 0.2 % (0.0-0.4); Lymphocytes Absolute Auto 1.3 X10*3/uL (1.2-4.9); Lymphocytes Percent Auto 26.8 % (20-40); Mean Corpuscular HGB Conc 32.4 g/dl (31.0-35.0); Mean Corpuscular Hemoglobin 28.4 pg (27.0-33.0); Mean Corpuscular Volume 87.8 fL (80.0-98.0); Mean Platelet Volume 10.5 fL (9.4-12.3); Monocytes Absolute Auto 0.4 X10*3/uL (0.1-1.2); Monocytes Percent Auto 8.1 % (2-11); Neutrophils Absolute Auto 2.9 x10*3/uL (2.0-8.3); Neutrophils Percent Auto 58.3 % (45-73); Platelet Count 238 X10*3/uL (160-400); Red Blood Count 4.33 X10*6/uL (4.20-5.50); Red Cell Distribution Width 15.1 % (11.0-16.0)
[2023-06-14 16:16] LABS: Erythrocyte Sedimentation Rate 20 MM/HR (0-20)
[2023-06-14 16:46] LABS: Alanine Aminotransferase 28 U/L (0-31); Aspartate Amino Transferase 26 U/L (5-31); C Reactive Protein 0.84 mg/dL (< or = 0.50); Estimated Glomerular Filt Rate > 60
== END 2023-06-14 14:34 | disposition home or self-care (01) ==
LOC: HO.LAB 14:33
PROVIDERS: Visit Provider Nurse Practitioner Family
DX: M13.80 Other specified arthritis, unspecified site (principal); Z79.899 Other long term (current) drug therapy
CPT/HCPCS: 36415; 82565; 84450; 84460; 85025; 85652; 86140

== ENCOUNTER 2023-06-17 09:12 | Outpatient (AMB) | payer OTHER, SELFPAY ==
--- NOTE | 2023-06-17 09:16 | A.OFFVIS_ITS ---
Vital Signs 06/17/23 09:25 Height 5 ft 3 in Weight 189 lb 2.506 oz BMI 33.5 BP 124/90 H Blood Pressure Location Rt brachial Position Sitting Pulse 93 Pulse Source Pulse Oximeter Pulse Oximetry (%) 98 Oxygen Delivery Method Room Air Intake Visit Reasons: Inflammatory Arthritis Intake Note: Patient last seen 03/25/23, presents today for follow up and test results. 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 Crockett 62-year-old female, here for follow-up of joint pain specific to her left lower leg and hands. At last visit. patient was diagnosed to have seronegative inflammatory arthritis and was started on MTX with a prednisone bridge. She is doing well with no hand pain or tenderness and only has some neur opathic foot pain which she says is help by Gabapentin. She also had a spine injection since last visit. She continues to say she feels a lot better and can work without stopping. She now feels some tingling along her forearms. She had stopped taking her lisinopril, omeprazole and gabapentin because she was feeling increasingly stiff in her hands and overall malaised. She says that went away when she stopped those medications. Prior Visit: Mrs. Crockett 62-year-old female, here for evaluation of joint pain specific to her left lower leg. She states that this started over a year ago and is not constant. Last week she was given prednisone for 1 week her PCP and was referred for physical therapy. The Prednisone did help the pain to her left lower lateral leg and across the dean, but she says she can feel it coming back now that she has stopped taking the prednisone. X-rays were done of her lower leg/dean area and came back normal per patient. The patient denies Raynaud's phenomenon, butterfly rash on face or other rashes; denies photosensitivity - getting sick or developing a rash from being out in the sun; denies blood or froth in urine; patient denies hx of SOB, chest pain. Patient denies hx of Carditis or Pleuritis. Patient denies any history of DVT/PE. The patient reports never have had to take aspirin or a blood thinner during the successful pregnancies. Denies fevers, excessive fatigue, unexplained weight-loss or weight-gain Denies: thinning hair or hair loss, hx of rashes; Denies: dry, itchy eyes, red burning eyes needing steroids to treat; dry mouth, mouth sores or ulcers; nose bleed; ringing in the ear Denies abdominal pain, blood or mucous in stool; nausea, vomiting and diarrhea , difficulty swallowing, she does have heartburn and takes Omeprazole prn. Denies morning stiffness lasting more than 20 mins. Malignancy screening: denies personal cancer hx. Colonoscopy : 11/2021 Mammogram 2022 [facility] Medical History (Updated 06/17/23 @ 09:45 by Alida Armstrong, [facility]) Stops taking medication too soon Long-term use of immunosuppressant medication Lumbar spondylolysis Seronegative inflammatory arthritis Piriformis syndrome of left side Inflammatory arthritis Left sciatic nerve pain Sciatica associated with disorder of lumbar spine Hand pain, right Hand pain, left Primary osteoarthritis involving multiple joints Polyarthralgia Sleep apnea residential (current) use of non-steroidal anti-inflammatories (nsaid) Sciatic leg pain Fibromyalgia Surgical History Hx of hysterectomy Family History Mother Arthritis Diabetes Social History Household Members: Children Alcohol intake: current Alcohol intake frequency: holidays/special occasions only Patient Tobacco Use Status: Never used Tobacco Current occupational status: employed 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 Regulrar rhythm, S1-S2 heard, no murmurs, rubs or gallops. LUNG:? Clear to percussion and auscultation EXTREMITIES:? No edema, no calf tenderness, normal peripheral pulses. NEURO:? Oriented and alert x3.? No focal weakness.? Reflexes symmetric.? Gait normal. JOINT EXAM: Cervical Spine:.? Full range of motion without pain; no tenderness. Thoracic Spine:.? No scoliosis.? No tenderness on palpation. Lumbar Spine:.? Alignment normal.? Full range of motion without pain, but has stiffness, mild tenderness to left side Chest Wall:.? No tenderness, swelling, increased warmth or erythema. Hands:.? Normal range of motion with no more mild tenderness, and no swelling or increased warmth. Able to make a full fist and has a good stiff neck loader strength. Herberdens across all DIPs with no more erythema and tenderness. Wrists:.? Normal pain-free range of motion with no mild tenderness, but no swelling, increased warmth or erythema. Elbows:. Normal pain-free range of motion without tenderness, swelling, increased warmth or erythema. Shoulders:.?? Full range of motion without pain. No weakness, swelling, increased warmth or erythema. Mild tenderness on palpation Hip bursa:.? No more tenderness. Mild Tenderness to right glute, No more Moderate tenderness to Left gluteal muscle Knees:.?? Normal pain-free range of motion without tenderness, swelling, increased warmth or erythema.? There is no effusion or crepitation Ankles:.? Normal pain-free range of motion without tenderness, swelling, increased warmth or erythema. Feet:.? Normal pain-free range of motion without tenderness, swelling, increased warmth or erythema. Tender points:? No tenderness to digital palpation at the occiput, trapezius, second rib, lateral epicondyle, knees, greater trochanter and gluteal area bilaterally. ? Results Reviewed Results Reviewed: Laboratory Tests 06/14/23 14:52 WBC 5.0 RBC 4.33 Hgb 12.3 Hct 38.0 Creatinine 0.65 AST 26 ALT 28 C-Reactive Protein 0.84 H Assessment & Plan Assessment & Plan (1) Seronegative inflammatory arthritis: Comment: 01/2023 Start MTX Code(s): M13.80 - Other specified arthritis, unspecified site Category: Medical (2) Left sciatic nerve pain: Code(s): M54.32 - Sciatica, left side Category: Medical (3) Piriformis syndrome of left side: Comment: Injection 02/2023 Code(s): G57.02 - Lesion of sciatic nerve, left lower limb Category: Medical (4) Primary osteoarthritis involving multiple joints: Code(s): M15.9 - Polyosteoarthritis, unspecified Category: Medical (5) Long-term use of immunosuppressant medication: Code(s): 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 X-ray has reaffirmed that she does have some osteoarthritis to her hand but has also revealed bone demineralization and central erosions that are seen in the context of an inflammatory arthritis. Slight ulnar deviation were also identified in some of the IP joints. We will continue with the goal to slow down and reduce further erosions to her hand IP joints. I discuss with patients that flares are possible sometimes after a hard work day or even the weather. She can call in for a prednisone taper to help with flares. #Left Prirformis Muscle/Sciatic Pain/Lumbar Spondylosis: No more marked tenderness to her piriformis muscle on the left side has resolved and was help by the cortisone injection at the 01/2023 visit. The results of her lumbar x- ray did show moderate DDD. She is also helped by recent lumbar injection. I encouraged patient to follow through with doing stretches as demonstrated. Her daughter did help her to find some appropriate videos so she can follow but she has not started them as yet She can continue with Tylenol as needed. #residential Use: CBC and Liver enzymes are WNL on MTX. We will continue to evaluate LFTs and CBC. I reiterated with patient the possible side effects to include but are not limited to blood dyscrasias, hepatoxicity, Nausea, vomiting and diarrhea, hair loss, fatigue and brain fog. #Self Stopped Medications: I discussed with patient that it is not advisable to stop medications without talking with her PCP, especially HTN medications. She is at risk for rebound hypertension which can land her in a crisis. Patient verbalized understanding. She will be following up with PCP soon. 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
[2023-06-17 09:25] VITALS: BP 124/90; PULSE 93; O2SAT 98; BMI 33.5
== END 2023-06-17 09:44 | disposition home or self-care (01) ==
PROVIDERS: PCP Family Medicine; Visit Provider Nurse Practitioner Family
DX: M54.32 Sciatica, left side (principal); M15.9 Polyosteoarthritis, unspecified; Z79.60 Long term (current) use of unspecified immunomodulators and immunosuppressants; M43.06 Spondylolysis, lumbar region; Z91.148 Patient's other noncompliance with medication regimen for other reason
CPT/HCPCS: 99214

== ENCOUNTER → 2023-06-17 09:12 | Outpatient (BNVA) | payer OTHER, SELFPAY | PROVIDERS: PCP Family Medicine; Visit Provider Nurse Practitioner Family ==

== ENCOUNTER 2024-02-07 15:29 | Outpatient (REF) | payer OTHER, SELFPAY ==
[2024-02-07 16:07] LABS: MANUAL DIFF FLAG NO
[2024-02-07 16:44] LABS: Basophils Absolute Auto 0.1 X10*3/uL (0.0-0.2); Basophils Percent Auto 1.4 % (0-2); Eosinophils Absolute Auto 0.3 X10*3/uL (0.0-0.4); Eosinophils Percent Auto 5.8 % (0-4); Hematocrit 39.8 % (37.0-47.0); Hemoglobin 12.7 g/dl (12.0-16.0); Imm Gran Abs Auto 0.02 X10*3/uL (0.00-0.03); Imm Gran Pct Auto 0.4 % (0.0-0.4); Lymphocytes Absolute Auto 1.6 X10*3/uL (1.2-4.9); Lymphocytes Percent Auto 31.6 % (20-40); Mean Corpuscular HGB Conc 31.9 g/dl (31.0-35.0); Mean Corpuscular Volume 87.9 fL (80.0-98.0); Mean Platelet Volume 10.2 fL (9.4-12.3); Monocytes Absolute Auto 0.4 X10*3/uL (0.1-1.2); Monocytes Percent Auto 8.4 % (2-11); Neutrophils Absolute Auto 2.7 x10*3/uL (2.0-8.3); Neutrophils Percent Auto 52.4 % (45-73); Platelet Count 224 X10*3/uL (160-400); Red Blood Count 4.53 X10*6/uL (4.20-5.50); Red Cell Distribution Width 15.5 % (11.0-16.0); White Blood Count 5.1 X10*3/uL (4.8-10.8)
[2024-02-07 17:17] LABS: Anion Gap 14 (12-20); Aspartate Amino Transferase 34 U/L (5-31); Bilirubin Total 0.3 mg/dL (0.0-1.0); Blood Urea Nitrogen 9 mg/dL (9-16); C Reactive Protein 0.92 mg/dL (< or = 0.50); Calcium 9.1 mg/dL (8.4-10.2); Carbon Dioxide 25 mmol/L (22-29); Chloride 109 mmol/L (96-108); Estimated Glomerular Filt Rate > 60; Glucose Random 96 mg/dL (60-115); Potassium 3.9 mmol/L (3.3-5.1); Sodium 144 mmol/L (135-145); Total Protein 6.8 g/dL (6.5-8.0)
[2024-02-07 17:37] LABS: Alanine Aminotransferase 41 U/L (0-31); Alkaline Phosphatase 130 U/L (39-117)
[2024-02-07 17:38] LABS: Erythrocyte Sedimentation Rate 23 MM/HR (0-20)
== END 2024-02-07 15:30 | disposition home or self-care (01) ==
LOC: HO.LAB 15:29
PROVIDERS: PCP Family Medicine; Visit Provider Student in an Organized Health Care Education/Training Program
DX: M13.80 Other specified arthritis, unspecified site (principal)
CPT/HCPCS: 36415; 80053; 85025; 85652; 86140

== ENCOUNTER 2024-02-07 15:29 | Outpatient (AMB) | payer OTHER, SELFPAY ==
--- NOTE | 2024-02-07 15:34 | A.OFFVIS_ITS ---
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 At that time patient was doing well on methotrexate. She also had recently gotten steroid injection in her back with improvement in her back pain. Today patient continues to do well she has no new complaints Rheumatologic History: Patient presented for evaluation of polyarthralgias including joint pain. X- rays showed evidence of erosive osteoarthritis. Currently treating with immunosuppression. ESR and CRP were normal Current Rheumatology Medication(s): Methotrexate 12.5 mg every week Folic acid 1 mg daily [facility] Medical History Stops taking medication too soon Long-term use of immunosuppressant medication Lumbar spondylolysis Seronegative inflammatory arthritis Piriformis syndrome of left side Inflammatory arthritis Left sciatic nerve pain Sciatica associated with disorder of lumbar spine Hand pain, right Hand pain, left Primary osteoarthritis involving multiple joints Polyarthralgia Sleep apnea correction (current) use of non-steroidal anti-inflammatories (nsaid) Sciatic leg pain Fibromyalgia Surgical History Hx of hysterectomy Family History Mother Arthritis Diabetes Social History Household Members: Children Alcohol intake: current Alcohol intake frequency: holidays/special occasions only Patient Tobacco Use Status: Never used Tobacco Current occupational status: employed Current occupation: [employer]isa at [employer] Review of Systems Const Details: Review of Systems Constitutional: Denies fever, chills, weight loss ENT: Denies vision changes, eye pain or eye redness, dental caries, dry mouth GI: Denies nausea, vomiting, diarrhea, abdominal pain, change in BM Pulm: Denies SOB, RUEDA, hemoptysis, wheezing Cards: Denies chest pain, palpitations Skin: Denies Raynaud's, rash, nail changes, photosensitivity, 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 Well appearing and in no apparent painful d istress HEENT Conjunctiva and sclera clear. ?Pupils equal round and reactive to light. ?No lymphadenopathy. ? CHEST/RESPIRATORY SYSTEM Normal respiratory effort and able to speak in complete sentences. ?Clear to auscultation bilaterally. ?No crackles, rales, rhonchi, wheezes heard. CARDIAC SYSTEM Regular rate and rhythm. ?S1 and S2 heard no murmurs. 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 Prominent Heberden's nodes to PIPs noted throughout hands with tenderness to palpation. Otherwise no evidence of synovitis Wrists: ?Full range of motion at the wrists without pain. ?No tenderness to palpation or synovitis noted to the wrists. Elbows: Full range of motion without pain. No tenderness, weakness, swelling, increased warmth or erythema. Shoulders: Full range of motion without pain. No tenderness, weakness, swelling, increased warmth or erythema. Hips: Full range of motion without pain. Hip bursa: No tenderness to palpation Knees: ?Full range of motion. ?No tenderness, swelling, increased warmth or erythema.?No effusion or crepitations Ankles: Full range of motion. ?No tenderness, swelling, increased warmth or erythema.? Feet: ?Negative squeeze test. ?No tenderness to palpation or swelling of the MTPs. Tender points:??No tenderness to palpation of the neck, shoulders, chest, elbows, hips, buttocks or knees. SKIN Skin intact without rashes. 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 Assessment & Plan Assessment & Plan (1) Seronegative inflammatory arthritis: Comment: 01/2023 Start MTX Code(s): M13.80 - Other specified arthritis, unspecified site Category: Medical Plan: #Erosive OA/seronegative inflammatory arthritis Doing well on Mtx Plan - Methotrexate 12.5mg weekly - Folic acid 1mg daily - CBC, CMP, ESR, CRP (2) Long-term use of immunosuppressant medication: Code(s): Z79.60 - correction (current) use of unspecified immunomodulators and immunosuppressants Category: Medical Plan: #Long-term Current Use of Methotrexate Discussed with patient the benefits and risks of methotrexate for managing their rheumatic condition Benefits include reduced pain, reduced mortality, maintenance of remission and reduction of flares Risks include oral ulcers, photosensitivity, hepatotoxicity, hematologic toxicity, pneumonitis, flu-like symptoms (especially day after administration), nodulosis, lymphomas ? Limit alcohol and avoid Bactrim ? Monitoring: ?CBC, BMP, LFTs every 3-4 months and hepatitis serologies as needed Plan I spent 30 minutes reviewing the record and labs, seeing the patient, discussing the treatment plan and documenting in the medical record ? Orders: Orders Complete Blood Count Auto Diff Today M13.80 - Other specified arthritis, unspecified site Comprehensive Met. Panel Today M13.80 - Other specified arthritis, unspecified site C Reactive Protein Today M13.80 - Other specified arthritis, unspecified site Erythrocyte Sedimentation Rate Today M13.80 - Other specified arthritis, unspecified site Medications: Refilled methotrexate sodium 12.5 mg (5 x 2.5 mg) PO QWEEK 65 tabs 1RF 90 days M19.90 - Unspecified osteoarthritis, unspecified site folic acid 1 mg PO DAILY 90 tabs 1RF M13.80 - Other specified arthritis, unspecified site Coding Level of Care Code Tele Est Pt Level 4 (96440) Complex EM visit Add On G2211 Diagnoses Seronegative inflammatory arthritis M13.80 Long-term use of immunosuppressant medication Z79.60
[2024-02-07 15:36] VITALS: BP 128/70; PULSE 76; BMI 31.6
== END 2024-02-07 15:50 | disposition home or self-care (01) ==
PROVIDERS: PCP Family Medicine; Visit Provider Student in an Organized Health Care Education/Training Program
DX: M13.80 Other specified arthritis, unspecified site (principal); Z79.60 Long term (current) use of unspecified immunomodulators and immunosuppressants
CPT/HCPCS: 99214; G2211

== ENCOUNTER 2024-06-22 15:47 | Outpatient (AMB) | payer OTHER, SELFPAY ==
[2024-06-22 15:51] VITALS: BP 128/66; PULSE 77; O2SAT 98; BMI 31.2
--- NOTE | 2024-06-22 15:51 | MHC.OFFVIS ---
Vital Signs 06/22/24 15:51 Height 5 ft 3 in Weight 176 lb 5.917 oz BMI 31.2 BP 128/66 Blood Pressure Location Lt brachial Position Sitting Pulse 77 Pulse Source Pulse Oximeter Pulse Oximetry (%) 98 Oxygen Delivery Method Room Air Intake Visit Reasons: follow up Intake Note: Patient presents for follow up on inflammatory arthritis and lab review. She was last seen on 02/07/[address] Lizama. Allergies No Known Allergies Allergy (Verified 06/22/24 15:55) Medication List - Last Reconciled 06/22/24 by Dorothy Lizama MD folic acid 1 mg PO DAILY lisinopril 5 mg PO DAILY methotrexate sodium 12.5 mg (5 x 2.5 mg) PO QWEEK 90 days omeprazole 20 mg PO DAILY PRN HPI Comments Details: Patient is a 63-year-old female with hypertension and seronegative inflammatory arthritis/erosive OA who presents today for follow up Interval History: Patient last seen 02/07/24 with wi. At that time she was following up for her seronegative inflammatory arthritis/erosive osteoarthritis on methotrexate and folic acid. She had no complaints and was in remission Today, Patient reports she continues to do well Rheumatologic History: Patient presented for evaluation of polyarthralgias including joint pain. X-rays showed evidence of erosive osteoarthritis. Currently treating with immunosuppression. 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 (nsaid) Sciatic leg pain Fibromyalgia Surgical History Hx of hysterectomy Family History Mother Arthritis Diabetes Social History Household Members: Children Alcohol intake: current Alcohol intake frequency: holidays/special occasions only Patient Tobacco Use Status: Never used Tobacco Current occupational status: employed Current occupation: [employer] at [employer] Review of Systems Const Details: Review of Systems Constitutional: Denies fever, chills, weight loss ENT: Denies vision changes, eye pain or eye redness, dental caries, dry mouth GI: Denies nausea, vomiting, diarrhea, abdominal pain, change in BM Pulm: Denies SOB, RUEDA, hemoptysis, wheezing Cards: Denies chest pain, palpitations Skin: Denies Raynaud's, rash, nail changes, photosensitivity, CLEARING INSPECTOR: Denies headaches, weakness, paresthesias, recurrent falls MSK: as per HPI All other systems reviewed and are unremarkable except noted above Physical Exam Vital Signs: Last Vital Signs Pulse 77 06/22/24 15:51 BP 128/66 06/22/24 15:51 Pulse Ox 98 06/22/24 15:51 Oxygen Delivery Method Room Air 06/22/24 15:51 BMI result Body Mass Index 31.2 Vital signs reviewed Physical Examination CONSTITUITIONAL Patient alert and cooperative. Well appearing and in no apparent painful distress HEENT Conjunctiva and sclera clear. ?Pupils equal round and reactive to light. ?No lymphadenopathy. ? CHEST/RESPIRATORY SYSTEM Normal respiratory effort and able to speak in complete sentences. ?Clear to auscultation bilaterally. ?No crackles, rales, rhonchi, wheezes heard. CARDIAC SYSTEM Regular rate and rhythm. ?S1 and S2 heard no murmurs. ?Radial pulses intact bilaterally MSK Hands: ?Able to make a fist. No synovitis noted to the MCPs, PIPs or DIPs. ?No tenderness to palpation of these joints. No deformities noted. ? Wrists: ?Full range of motion at the wrists without pain. ?No tenderness to palpation or synovitis noted to the wrists. Elbows: Full range of motion without pain. No tenderness, weakness, swelling, increased warmth or erythema. Shoulders: Full range of active range of motion without pain. No tenderness, weakness, swelling, increased warmth or erythema. Hips: Full range of motion without pain. Hip bursa: No tenderness to palpation Knees: ?Full range of motion. ?No tenderness, swelling, increased warmth or erythema.?No effusion or crepitations Ankles: Full range of motion. ?No tenderness, swelling, increased warmth or erythema.? Feet: ?Negative squeeze test. ?No tenderness to palpation or swelling of the MTPs. Tender points:?No tenderness to palpation of the bilateral trapezius, supraspinatus, greater trochanters, anterior costochondral junctions, bilateral gluteal areas, bilateral suboccipital muscle insertions SKIN Skin intact without rashes. Results Reviewed Results Reviewed: Laboratory Tests 02/07/24 16:05 WBC 5.1 RBC 4.53 Hgb 12.7 Hct 39.8 Plt Count 224 ESR 23 H Sodium 144 Potassium 3.9 Chloride 109 H Carbon Dioxide 25 BUN 9 Creatinine 0.66 AST 34 H ALT 41 H Alkaline Phosphatase 130 H C-Reactive Protein 0.92 H Immunology labs 01/10/23 11:05 Rheumatoid Factor < 13.0 Cycl Citrul Peptide IgG <16 ARIADNE Screen NEGATIVE Assessment & Plan Assessment & Plan (1) Seronegative inflammatory arthritis: Comment: 01/2023 Start MTX Code(s): M13.80 - Other specified arthritis, unspecified site Category: Medical Plan: #Erosive OA/seronegative inflammatory arthritis Patient is a 63-year-old female with seronegative inflammatory arthritis/erosive osteoarthritis here today for follow up. Currently in remission. Lab work done in January showed mild transaminitis. 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 Limit alcohol and avoid Bactrim ? Monitoring: ?CBC, BMP, LFTs every 3-4 months and hepatitis serologies as needed Plan I spent 30 minutes reviewing the record and labs, seeing the patient, discussing the treatment plan and documenting in the medical record ? Orders: Orders Comprehensive Met. Panel 4 Months M13.80 - Other specified arthritis, unspecified site Erythrocyte Sedimentation Rate 4 Months M13.80 - Other specified arthritis, unspecified site Complete Blood Count Auto Diff Today M13.80 - Other specified arthritis, unspecified site Comprehensive Met. Panel Today M13.80 - Other specified arthritis, unspecified site Erythrocyte Sedimentation Rate Today M13.80 - Other specified arthritis, unspecified site Hepatitis A,B,C Profile Today M13.80 - Other specified arthritis, unspecified site T Spot TB Today M13.80 - Other specified arthritis, unspecified site Complete Blood Count Auto Diff 4 Months M13.80 - Other specified arthritis, unspecified site C Reactive Protein 4 Months M13.80 - Other specified arthritis, unspecified site C Reactive Protein Today M13.80 - Other specified arthritis, unspecified site Medications: Refilled folic acid 1 mg PO DAILY 90 tabs 1RF M13.80 - Other specified arthritis, unspecified site methotrexate sodium 12.5 mg (5 x 2.5 mg) PO QWEEK 90 days 65 tabs 1RF M19.90 - Unspecified osteoarthritis, unspecified site Coding Level of Care Code Est Pt Level 4 (47866) Complex EM visit Add On G2211 Diagnoses Seronegative inflammatory arthritis M13.80 Long-term use of immunosuppressant medication Z79.60
--- OUTSIDE RECORDS SUMMARY | 2024-06-22 16:10 | XMS_ITS | Data Portability ---
Author Organization [facility], , [facility], OFFICE Address [address] [place] [address] [address] Lab Technician Name Role Phone KEHINDE MAN. [facility] Re[facility] SARA MCKEON Primary Care Provider [phone] Assessment Encounter Date Assessment Date Assessment LastModified by Organization Details LastModified Time 01/03/2023 01/03/2023 We completed you r Medicare Wellness exam today. This was an opportunity to assess your overall well being including your ability to care for yourself, your mobility, memory, mental health, as well as your safety. With advancing age, it is important to assign someone in your life as your Health Care Proxy (HCP). This person should know what is important to you and what your wishes are for medical procedures if you cannot communicate your wishes yourself (severe illness, unconsciousness). We discussed having a completed Health Care Proxy form today. In addition, today we started a conversation about your End of Life wishes. These conversations will continue over the years. Please consider reading the book, Being Mortal by Waylon Price to help frame future conversations. We discussed the purpose of a MOLST form (Medical Orders for Life Sustaining Treatment) and completed this form if appropriate per your wishes. Vision and Hearing are senses that are critically important as we age. When impaired, they can contribute to memory loss, falls, and make it harder to drive, talk to family and friends, and engage in the world. Please get your vision checked yearly and your hearing checked when you start to notice hearing loss. We discussed approaches to lowering your risk of heart disease and stroke . Your blood pressure is higher than goal consider losing weight and lowering your salt intake. Your cholesterol is higher than goal, work on eating more fruits and vegetables and avoiding saturated fats. We discussed cancer screening you may need as well as vaccines to prevent infections. Colon Cancer : Your risk of colon cancer is average. Due for colorectal screenin. If you are not planning to have a colonoscopy please screen with stool cards yearly. Breast Cancer : Breast Cancer Screening (mammography). Next mammogram due: 2022. last 05/2021 Cervical Cancer Screening (pap test). Next pap due: 2022. Influenza Vaccine : Flu shot yearly. Tetanus Vaccine : Every 10 years. Due: 2025. The following vaccines are available from your pharmacy: Pneumonia Vaccine : PCV20: once after age 65. Shingles Vaccine : 2 shots after age 50. Covid Vaccine : Make sure you have received the most up to date covid vaccine. Your personal health goal for the year is: We completed your Medicare Wellness exam today. This was an opportunity to assess your overall well being including your ability to care for yourself, your mobility, memory, mental health, as well as your safety. With advancing age, it is important to assign someone in your life as your Health Care Proxy (HCP). This person should know what is important to you and what your wishes are for medical procedures if you cannot communicate your wishes yourself (severe illness, unconsciousness). We discussed having a completed Health Care Proxy form today. In addition, today we started a conversation about your End of Life wishes. These conversations will continue over the years. Please consider reading the book, Being Mortal by Waylon Price to help frame future conversations. We discussed the purpose of a MOLST form (Medical Orders for Life Sustaining Treatment) and completed this form if appropriate per your wishes. Health Goal - get rid of sciatica pain. Not available 01/03/2023 14:04:34 03/10/2023 03/10/2023 Onychogryphosis bilateral hallux [email or web address] Not available 03/10/2023 11:04:17 01/17/2024 01/17/2024 General Health Maintenance -Schedule next Pap smear for 2024. -Plan for wellness visit and labs today. If lab is closed, patient to return for labs. Not available 01/21/2024 09:17:14 04/04/2024 04/04/2024 Pt seen for Tommy Cognitive Assessment (MoCA) Version 8.1 Pt scored 21/30 which is in the range of Mild Cognitive Impairment. Pts who test in this range often exhibit mild forgetfulness, mild disorientation, and mild impairment in problem solving. On interview: Pt's daughter Nelson was present. Pt describes being very forgetful especially with appts, and taking medicine. FamHx father w dementia. Pt living with daughter since her divorce last year. 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 No memory issues at work. Previously an tafe [place] n [place]. Mini Cog in Dec 2023: 07/02 Findings were shared and explained. We discussed the idea that this may be more of an issue of attn and concentration than with working memory. Pt exhibits no cognitive issues when she is focused at work. Given pt's family history and her scores on the MoCA and MiniCog, I recommend watchful waiting and a re-evaluation in one year. Pt and daughter know they can contact me or PCP in the interim if new concerns should arise. [email or web address] Not available 04/04/2024 15:21:15 Plan of Treatment Reminders Order Date Submit Date Provider Last Modified By Organization Details Last Modified Time Details Appointments Follow Up, 30 2024 11:30A M Sara Mckeon NP Not available Not available Not available Mammog rowan, Screen ing 2024 10:30A M [facility] Mammography Not available Not available Not available LAB Follow -Up 2024 08:25A M [facility] Lab Not available Not available Not available Peewee Visit 30 2024 11:00A M Sara Mckeon NP Not available Not available Not available Lab HbA1c (hemog lobin A1c), blood 2023 024 [facility], [address] [place], [address], 01/18/2024 10:02:14 lipid panel, serum 2023 024 [facility], [address] [place], [address], 05/04/2023 13:44:41 CBC 2023 024 [facility], [address] [place] [address], [id number], 05/04/2023 12:20:18 HbA1c (hemog lobin A1c), blood 2023 024 [facility], [address] [place] [address], [id number], 05/04/2023 14:22:21 CMP, serum or plasma 2023 024 [facility], [address] [place] [address], [id number], 05/04/2023 13:44:39 Referral otolar yngolo gist referr al - Sleep apnea, insura nce will not cover magdy e, pls discus s altern atives . 2023 024 [email or web address] [facility], [address] [place] [address], [id number], 01/22/2024 09:46:[address] referr al - Fibrom yalgia - sciati ca worst pain - LLEPre v seen by Dr. Venkatesh montague & Dr. Arley Bowser 2022 023 [facility], [address] [place] [address] Jony Coe, [place], [address], 01/11/2023 13:20:03 spine center referr al - Pls book with Nelly Charles Chroni c sciati ca x yrs withou t relief . Pls eval. 2022 023 [email or web address] [facility], [address] [place] [address], [id number], 01/10/2023 15:38:53 physic al therap ist referr al - Sciati c pain x yrs; worsen ing; please see for PT & will be seeing provid er for tx & plan. 2022 023 [email or web address] [facility], [address] [place] [address], [id number], 01/03/2023 21:18:05 Procedures None record ed. Surgeries None record ed. Imaging XR, ankle - Inner ankle pain with wt bearin g. Front and side view 2023 024 [facility] (Imaging), [address], [place], [address], 01/17/2024 14:41:54 XR, foot - Inner ankle pain with wt bearin g. Forefo ot & side foot views. 2023 024 [facility] (Imaging), [address], [place], [address], 01/17/2024 14:42:27 MAMMO, screen ing, tomosy nthesi s, bilate ral - 2nd Look Consul t/Diag Mammo/ US Breast /Guide d Asp/Br east Bx/Cli p Placem ent, as clinic ally indica lamin. 2023 024 [facility] (Imaging), [address], [place], [address], 01/19/2024 11:59:39 MAMMO, screen ing, tomosy nthesi s, bilate ral - Note to Provid er: 2nd look consul t/Diag Mammo/ US Breast /Guide d Asp/Br east Bx as clinic ally indica lamin. 2022 023 [facility] (Imaging), [address], [place], [address], 05/24/2023 12:57:27 Medication Orders omepra zole 20 mg capsul e,adarsh yed releas e 2023 024 CORY Alfredo [address] ([facility] 827), [address] [place], [place], [id number], 01/17/2024 12:41:27 lisino pril 5 mg tablet 2023 024 CORY Alfredo [address] ([facility] 827), [address] [place], [place], [id number], 01/17/2024 12:46:01 acetam inophe n 325 mg tablet 2022 023 [email or web address] [address] ([facility] [address] [place], [place], [id number], 01/17/2024 12:08:41 predni sone 20 mg tablet 2022 [facility] [address] ([facility] [address] [place], [place], [id number], 01/17/2024 12:08:50 Patient TargetsNo targets recorded. Patient Instructions Encounter Date Encounter Id Patient Instructions Last Modified By Organization Details Last Modified Time 01/03/2023 [id number] preventing falls : care instructions [email or web address] Not available 01/03/2023 13:31:11 hearing loss: care instructions [email or web address] Not available 01/03/2023 13:31:11 advance directives: care instructions [email or web address] Not available 01/03/2023 13:31:11 Well Visit, Ages 18 to 65: Care Instructions [email or web address] Not available 01/03/2023 13:31:11 well visit, wome n 50 to 65: care instructions [email or web address] Not available 01/03/2023 13:31:12 03/10/2023 [id number] Patient to retur n if symptoms persist/recur. 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 Colunga & Dr. Arley Bowser Referring Physician: Sara Mckeon [facility], Encounter Date: 01/03/2023 Spine Center Referral for Sc iatica Pls book with Nelly Reyes - Chronic sciatica x yrs without relief. Pls eval. Referring Physician: Sara Mckeon [facility], Encounter Date: 01/03/2023 Physical Therapist Referral for Sciatica Sciatic pain x yrs; worsening; please see for PT & will be seeing provider for tx & plan. Referring Physician: Sara Mckeon [facility], Encounter Date: 01/03/2023 Supply Assistant Referral fo r Sleep apnea Sleep apnea, insurance will not cover machine, pls discuss alternatives. Referring Physician: Sara Mckeon [facility], Encounter Date: 01/17/2024 Results Created Date Observation Date Name Description Value Unit Range Abnormal Flag Note LastModifiedBy Organization Detail LastModifiedTime 05/04/19 24 05/04/2023 CBC WBC 6.64 K/? ? ?L 3.98-1 0.04 Not Available [address], [address], 05/04/2023 12:20:18 05/04/19 24 05/04/2023 CBC RBC 4.59 M/? ? ?L 3.93-5 .22 Not Available [address], [address], 05/04/2023 12:20:18 05/04/19 24 05/04/2023 CBC HGB 12.7 g/dL 11.2-1 5.7 Not Available [address], [address], 05/04/2023 12:20:18 05/04/19 24 05/04/2023 CBC HCT 40.6 % 34.1-4 4.9 Not Available [address], [address], 05/04/2023 12:20:18 05/04/19 24 05/04/2023 CBC MCV 88.5 fL 79.4-9 4.8 Not Available [address], [address], 05/04/2023 12:20:18 05/04/19 24 05/04/2023 CBC MCH 27.7 pg 25.6-3 2.2 Not Available [address], [address], 05/04/2023 12:20:18 05/04/19 24 05/04/2023 CBC MCHC 31.3 g/dL 32.2-3 5.5 low Not Available [address], [address], 05/04/2023 12:20:18 05/04/19 24 05/04/2023 CBC plt 246 K/? ? ?L 182-36 9 Not Available [address], [address], 05/04/2023 12:20:18 05/04/19 24 05/04/2023 CBC MPV 10.8 fL 9.4-12 .3 Not Available [address], [address], 05/04/2023 12:20:18 05/04/19 24 05/04/2023 CBC neut% 73.9 % 34.0-7 1.1 high Not Available [address], [address], 05/04/2023 12:20:18 05/04/19 24 05/04/2023 CBC neut# 4.92 1.56-6 .13 Not Available [address], [address], 05/04/2023 12:20:18 05/04/19 24 05/04/2023 CBC lymph % 15.1 % 19.3-5 1.7 low Not Available [address], [address], 05/04/2023 12:20:18 05/04/19 24 05/04/2023 CBC lymph # 1.00 K/? ? ?L 1.18-3 .74 low Not Available [address], [address], 05/04/2023 12:20:18 05/04/19 24 05/04/2023 CBC mono% 6.8 % 4.7-12 .5 Not Available [address], [address], 05/04/2023 12:20:18 05/04/19 24 05/04/2023 CBC mono# 0.45 0.24-0 .56 Not Available [address], [address], 05/04/2023 12:20:18 05/04/19 24 05/04/2023 CBC eo% 2.3 % 0.7-5. 8 Not Available [address], [address], 05/04/2023 12:20:18 05/04/19 24 05/04/2023 CBC eo# 0.15 0.04-0 .36 Not Available [address], [address], 05/04/2023 12:20:18 05/04/19 24 05/04/2023 CBC baso% 1.4 % 0.1-1. 2 high Not Available [address], [address], 05/04/2023 12:20:18 05/04/19 24 05/04/2023 CBC baso# 0.09 0.00-0 .08 high Not Available [address], [address], 05/04/2023 12:20:18 05/04/19 24 05/04/2023 CBC RDW-CV 16.1 % 11.7-1 4.4 high Not Available [address], [address], 05/04/2023 12:20:18 05/04/19 24 05/04/2023 CBC Ig% 0.500 % 0.000- 1.500 Ig % >0.5 Indic ates possi ble Left Shift Not Available [address], [address], 05/04/2023 12:20:18 05/04/19 24 05/04/2023 CBC Ig# 0.030 0.000- 0.093 Not Available [address], [address], 05/04/2023 12:20:18 05/04/19 24 05/04/2023 CBC NRBC% 0.0 % 0.0-0. 2 Not Available [address], [address], 05/04/2023 12:20:18 05/04/19 24 05/04/2023 CBC NRBC# 0.000 0.000- 0.012 Not Available [address], [address], 05/04/2023 12:20:18 05/04/19 24 05/04/2023 COMP. METAB OLIC PANEL glucose 118 mg/dL 70-100 high Not Available [address], [address], 05/04/2023 13:44:39 05/04/19 24 05/04/2023 COMP. METAB OLIC PANEL BUN 8 mg/dL 7-18 Not Available [address], [address], 05/04/2023 13:44:39 05/04/19 24 05/04/2023 COMP. METAB OLIC PANEL creatinine 0.6 mg/dL 0.8-1. 3 low Not Available [address], [address], 05/04/2023 13:44:39 05/04/19 24 05/04/2023 COMP. METAB OLIC PANEL B/C 13.3 ratio Not Available [address], [address], 05/04/2023 13:44:39 05/04/19 24 05/04/2023 COMP. METAB OLIC PANEL GFR >=60ML /MIN mL/mi n normal >=60m L/min - Michelle l or midly reduc ed <60mL /min- Decre ased kidne y funct ion <15mL /min - Kidne y failu re [facility] calcu lates estim ated Glome rular Filtr ation Rate (eGFR ) using the Chron ic Kidne y Disea se Epide miolo gy Colla borat ion (CKD- EPI) Equat ion (Leo r et. al 2020) as recom beata d by the Natio nal Kidne y Found ation . eGFR is based on age, serum creat inine , and sex. CKD-E PI does not calcu late eGFR by race, does not apply to child ted (age <18 years ), and shoul d not be used in pregn uyen. Not Available [address], [address], 05/04/2023 13:44:39 05/04/19 24 05/04/2023 COMP. METAB OLIC PANEL sodium 142 mmol/ L 136-14 5 Not Available [address], [address], 05/04/2023 13:44:39 05/04/19 24 05/04/2023 COMP. METAB OLIC PANEL potassium 4.1 mmol/ L 3.5-5. 1 Not Available [address], [address], 05/04/2023 13:44:39 05/04/19 24 05/04/2023 COMP. METAB OLIC PANEL chloride 106 mmol/ L 96-107 Not Available [address], [address], 05/04/2023 13:44:39 05/04/19 24 05/04/2023 COMP. METAB OLIC PANEL anion gap 9.7 5.0-15 .0 Not Available [address], [address], 05/04/2023 13:44:39 05/04/19 24 05/04/2023 COMP. METAB OLIC PANEL CO2 26 mmol/ L 21-32 Not Available [address], [address], 05/04/2023 13:44:39 05/04/19 24 05/04/2023 COMP. METAB OLIC PANEL calcium 9.0 mg/dL 8.5-10 .3 Not Available [address], [address], 05/04/2023 13:44:39 05/04/19 24 05/04/2023 COMP. METAB OLIC PANEL total protein 6.6 g/dL 6.4-8. 2 Not Available [address], [address], 05/04/2023 13:44:39 05/04/19 24 05/04/2023 COMP. METAB OLIC PANEL albumin 3.6 g/dL 3.4-5. 0 Not Available [address], [address], 05/04/2023 13:44:39 05/04/19 24 05/04/2023 COMP. METAB OLIC PANEL globulin 3.0 g/dL Not Available [address], [address], 05/04/2023 13:44:39 05/04/19 24 05/04/2023 COMP. METAB OLIC PANEL A/G 1.2 ratio 0.8-2. 0 Not Available [address], [address], 05/04/2023 13:44:39 05/04/19 24 05/04/2023 COMP. METAB OLIC PANEL total bilirubin 0.40 mg/dL 0.00-1 .00 Not Available [address], [address], 05/04/2023 13:44:39 05/04/19 24 05/04/2023 COMP. METAB OLIC PANEL AST 25 U/L 0-37 Not Available [address], [address], 05/04/2023 13:44:39 05/04/19 24 05/04/2023 COMP. METAB OLIC PANEL ALT 39 U/L 6-63 Not Available [address], [address], 05/04/2023 13:44:39 05/04/19 24 05/04/2023 COMP. METAB OLIC PANEL alk. phos. 120 U/L 50-136 Not Available [address], [address], 05/04/2023 13:44:39 05/04/19 24 05/04/2023 LIPID PANEL cholesterol 256 mg/dL <200 mg/dl Abeba able 200-2 39 mg/dl Borde rline High >240 mg/dl High Not Available [address], [address], 05/04/2023 13:44:41 05/04/19 24 05/04/2023 LIPID PANEL triglyceride s 176 mg/dL <150 mg/dL Michelle l 150-1 99 mg/dL Borde rline High 200-4 99 mg/dL High >500 mg/dL Very High Not Available [address], [address], 05/04/2023 13:44:41 05/04/19 24 05/04/2023 LIPID PANEL direct HDL 54 mg/dL <40 mg/dl - Major Risk for CHD >60 mg/dl - Negat donnie Risk for CHD Not Available [address], [address], 05/04/2023 13:44:41 05/04/19 24 05/04/2023 DIREC T LDL direct LDL 160 mg/dL RISK CATEG ORY LDL GOAL _ CHD or CHD Risk Equiv alent s <100 mg/dl (10-y ear risk >20%) 2+ Risk Facto rs <130 mg/dl (10-y ear risk <= 20%) 0-1 Risk Facto r? <160 mg/dl ? Almos t all peopl e with 0-1 risk facto r have a 10 year risk <10%, thus 10 year risk asses ment in peopl e with 0-1 risk facto r is not grey sheppard. Not Available [address], [address], 05/04/2023 13:44:42 05/04/19 24 05/04/2023 HGB A1C hemoglobin A1C 6.5 % 4.8-6. 0 high Goal: <7% in Patie nts with Diabe keaton An A1c betwe en 5.7-6 .4% is ident ified as pre-d iabet es and sugge sts risk for progr essio n to diabe keaton Two a1c value s of 6.5% or highe r is consi stent with a diagn osis of diabe keaton but may need furth er confi rmati on Not Available [address], [address], 05/04/2023 14:22:21 05/04/19 24 05/04/2023 HGB A1C estimated average glucose 139.9 mg/dL Not Available [address], [address], 05/04/2023 14:22:21 01/17/20 24 01/18/2024 HGB A1C hemoglobin A1C 6.3 % 4.8-6. 0 high Goal: <7% in Patie nts with Diabe keaton An A1c betwe en 5.7-6 .4% is ident ified as pre-d iabet es and sugge sts risk for progr essio n to diabe keaton Two a1c value s of 6.5% or highe r is consi stent with a diagn osis of diabe keaton but may need furth er confi rmati on Not Available [address], [address], 01/18/2024 10:02:14 01/17/20 24 01/18/2024 HGB A1C estimated average glucose 134.1 mg/dL Not Available [address], [address], 01/18/2024 10:02:14 01/17/20 24 01/19/2024 LIPID PANEL cholesterol 222 mg/dL <200 mg/dl Abeba able 200-2 39 mg/dl Borde rline High >240 mg/dl High Not Available [address], [address], 01/19/2024 12:13:58 01/17/20 24 01/19/2024 LIPID PANEL triglyceride s 139 mg/dL <150 mg/dL Michelle l 150-1 99 mg/dL Borde rline High 200-4 99 mg/dL High >500 mg/dL Very High Not Available [address], [address], 01/19/2024 12:13:58 01/17/20 24 01/19/2024 LIPID PANEL direct HDL 59 mg/dL <40 mg/dl - Major Risk for CHD >60 mg/dl - Negat donnie Risk for CHD Not Available [address], [address], 01/19/2024 12:13:58 01/17/20 24 01/19/2024 DIREC T LDL direct LDL 129 mg/dL RISK CATEG ORY LDL GOAL _ CHD or CHD Risk Equiv alent s <100 mg/dl (10-y ear risk >20%) 2+ Risk Facto rs <130 mg/dl (10-y ear risk <= 20%) 0-1 Risk Facto r? <160 mg/dl ? Almos t all peopl e with 0-1 risk facto r have a 10 year risk <10%, thus 10 year risk asses ment in peopl e with 0-1 risk facto r is not neces valarie. Not Available [facility] [address] [facility], [place], [address], 01/19/2024 12:13:59 01/06/20 23 09/14/2021 home sleep testi ng (PROC ) No observ ation record ed. [facility] [address] [place], [address], 02/09/2023 08:58:35 01/17/20 24 01/17/2024 XR, ankle CLINIC AL HISTOR Y: Left ankle pain. TECHNI QUE: Three views of the left ankle obtain ed. COMPAR TOMASA: None. FINDIN GS: There is no acute fractu re, sublux ation or disloc ation. The joint spaces are preser cheryl. There are phlebo liths in the soft tissue s IMPRES ARTURO: No acute bone abnorm ality. Karla garcia Physic jerri: Ethan Humphreys [facility] (Imaging) [address], [place], [address], 01/22/2024 02:57:03 01/17/20 24 01/17/2024 XR, foot CLINIC AL HISTOR Y: Left foot pain. TECHNI QUE: AP, and latera l views of the left foot obtain ed. COMPAR TOMASA: None. FINDIN GS: There is no acute fractu re or disloc ation. The joint spaces are preser cheryl. The soft tissue s are unrema rkable . IMPRES ARTURO: No acute bone injury . Karla garcia Physic jerri: Ethan nagel [facility] (Imaging) [address] [place], [address], 01/22/2024 02:57:04 Result Notes None recorded. Problems Name Problem SNOMED Code Status Onset Date Resolution Date Notes Provider Name and Address Organization Details Recorded Time Mixed hyperlipide gilson 831705352 Active 2022 Katharina York RN null, [facility] 3 12:08:37 Morbid obesity 106380496 Active 2022 Katharina York RN null, [facility] 3 12:08:50 Recurrent major depression 28492754 Active 2022 Katharina York RN null, [facility] 3 12:09:09 Gastroesoph ageal reflux disease 603935669 Active 2022 Katharina York RN null, [facility] 3 12:09:20 Eczema 13274747 Active 2022 Katharina York RN null, [facility] 3 12:10:13 Prolapsed lumbar interverteb ral disc 006493459 Active 2022 Katharina York RN null, [facility] 3 12:11:01 Sciatica 45089654 Active 2022 Katharina York RN null, [facility] 3 12:11:16 Chronic neck pain 5500889664157 Active 2022 Katharina York RN null, [facility] 3 12:11:36 Primary fibromyalgi a syndrome 99003466 Active 2022 Katharina York RN null, [facility] 3 12:12:07 Sleep apnea 20783653 Active 2022 Katharina York RN null, [facility] 3 12:12:22 Poor short-term memory 206525869 Active 2022 Katharina York RN null, [facility] 3 12:12:35 Chronic abdominal pain 495153430 Active 2022 Katharina York RN null, [facility] 3 12:12:58 Problem Notes None recorded. Procedures Surgical History Date Name Laterality Status Provider Name and Address Organization Details Recorded Time 3 Damian - Colonoscopy completed Mohit Salgado MD [address] [place] [address], [id number], [facility] 03/22/2022 14:14:17 Imaging Results Imaging Date Name Status [facility] by [facility] Details LastModified Time 09/14/2021 home sleep testing (PROC) completed [facility] [address] , [place], [address], 02/09/2023 08:58:35 01/17/2024 XR, ankle completed [facility] (Imaging) [address] [place], [address], 01/22/2024 02:57:03 01/17/2024 XR, foot completed [facility] (Imaging) [address] [place], [address], 01/22/2024 02:57:04 Procedure Notes None recorded. Medical Equipment None Reported. Allergies No known drug allergies Medications Name Sig Start Date Stop Date Status Note LastModified by Organization Details LastModified Time Prescript ion - Prior Authoriza tion Request 01/18 completed Not Available Not Available Not Available nystatin 100,000 unit/mL oral suspensio n Take 5 mL 4 TIMES A DAY by oral route for 15 to 21 days. active Not Available Not Available No t Available acetamino phen 325 mg tablet TAKE 2 TABLETS BY MOUTH EVERY 12 HOURS NEEDED 01/16 completed Not Available Not Available Not Available prednison e 10 mg tablet Take 60mg (6 tabs) x 1 day, 50x 1 day, 40x 1 day, 30mgx 1day and 20x 1 day and 10x 1 day 02/06 completed finished 12/31/20 jmm Not Available Not Available Not Available tizanidin e 2 mg tablet TK 1 T PO BID PRF MUSCLE PAIN 03/24 completed Not Available Not Available Not Available ammonium lactate 12 % lotion APPLY TOPICALL Y TO THE AFFECTED AREA TWICE DAILY DIRECTED 06/10 completed PRN 09/08/21 mK Not Available Not Available Not Available citalopra m 40 mg tablet TAKE 1 TABLET BY MOUTH EVERY DAY 2010 active Not Available Not Available Not Avai lable ibuprofen 800 mg tablet Take 1 tablet every day by oral route as needed for 30 days. 01/16 completed Not taking - since starting on methotre xate Feb 2023 05/04/23 drm Not Available Not Available Not Available alprazola m 1 mg tablet TAKE 1 TABLET BY MOUTH 1 HOUR BEFORE PROCEDUR E 05/03 completed Not Available Not Available Not Available hydrocodo ne 5 mg-acetam inophen 325 mg tablet TK 1 TO 2 TS PO Q 6 H PRN P active Not Available Not Available No t Available prednison e 20 mg tablet TAKE 1 TABLET BY MOUTH EVERY DAY FOR 5 DAYS DIRECTED 01/16 completed resumes as needed. By [employer] logist. Not Available Not Available Not Available prednison e 5 mg tablet TAKE 1 TABLET BY MOUTH EVERY DAY DIRECTED 01/16 completed Not Available Not Available Not Available Nexium 40 mg capsule,d elayed release Take 1 capsule every day by oral route for 90 days. 2023 active Not Available Not Available Not Avai lable Flonase 50 mcg/actua tion nasal spray,[facility] [place] 1 spray every day by intranas al route. 2009 active Not Available Not Available Not Avai lable tramadol 50 mg tablet TAKE 1 TO 2 TABLETS BY MOUTH FOUR TIMES DAILY NEEDED FOR PAIN 04/06 completed Not Available Not Available Not Available triamcino lone acetonide 0.1 % topical cream APPLY A THIN FILM TO THE AFFECTED AREA TWICE DAILY 02/06 completed Not using 12/18/20 PP Not Available Not Available Not Available meloxicam 7.5 mg tablet TAKE 1 TABLET BY MOUTH BEFORE WORK(ONC E DAILY) NEEDED FOR PAIN 06/10 completed Not Available Not Available Not Available oxycodone -acetamin ophen 5 mg-325 mg tablet 03/29 completed Not Available Not Available Not Available amoxicill in 875 mg tablet TAKE 1 TABLET BY MOUTH TWICE DAILY UNTIL FINISHED 11/19 completed Not Available Not Available Not Available citalopra m 20 mg tablet TAKE 1.5 TABLETS BY MOUTH EVERY MORNING 2008 active Not Available Not Available Not Avai lable lorazepam 0.5 mg tablet TAKE 1-2 TABLETS BY MOUTH AN HOUR PRIOR TO PROCEDUR E. 06/10 completed Not Available Not Available Not Available methotrex ate sodium 2.5 mg tablet TAKE 5 TABLETS BY MOUTH EVERY WEEK active Not Available Not Available No t Available erythromy amauri 5 mg/gram (0.5 %) eye ointment APPLY A 1 CM RIBBON IN AFFECTED EYE(S) THREE TIMES DAILY 02/06 completed Not Available Not Available Not Available nystatin 100,000 unit/gram topical cream APPLY TO THE AFFECTED AREA(S) BY TOPICAL ROUTE 2 TIMES PER DAY for 2 weeks active Not Available Not Available No t Available orphenadr ine citrate ER 100 mg tablet,ex tended release TK 1 T PO BID PRN FOR MUSCLE SPASM active Not Available Not Available No t Available gabapenti n 300 mg capsule TAKE 1 CAPSULE BY MOUTH TWICE DAILY 01/16 completed Not Available Not Available Not Available omeprazol e 20 mg capsule,d elayed release Take 1 capsule daily for 90 days 2023 active PRN Not Available Not Available Not Avai lable folic acid 1 mg tablet active Not Available Not Available Not Available bisacodyl 5 mg tablet,de layed release TAKE 4 TABLETS BY MOUTH AT ONE TIME DIRECTED 06/10 completed Not Available Not Available Not Available lisinopri l 5 mg tablet TAKE 1 TABLET BY MOUTH EVERY DAY DIRECTED 01/16 completed Not Available Not Available Not Available gabapenti n 100 mg capsule CAN TAKE 1 TO 3 CAPSULES BY MOUTH BEFORE BEDTIME FOR 30 DAYS 11/19 completed not using 11/19/20 [email or web address] Not Available Not Available Not Available lorazepam 1 mg tablet TAKE 1 TO 2 TABLETS BY MOUTH ONE HOUR PRIOR TO PROCEDUR E 11/19 completed Not Available Not Available Not Available ibuprofen 600 mg tablet TAKE 1 TABLET BY MOUTH THREE TIMES DAILY WITH FOOD NEEDED FOR PAIN 04/25 completed Not Available Not Available Not Available diazepam 5 mg tablet TAKE 1 TABLET BY MOUTH EVERY 6 HOURS NEEDED FOR SPASM 09/08 completed Not Available Not Available Not Available cyclobenz aprine 5 mg tablet TAKE 1 TO 2 TABLETS BY MOUTH EVERY NIGHT AT BEDTIME NEEDED FOR PAIN 06/10 completed Not Available Not Available Not Available duloxetin e 20 mg capsule,d elayed release TAKE 1 CAPSULE BY MOUTH EVERY DAY 05/03 completed 10/26/22- states she is not taking. From sports med Not Available Not Available Not Available duloxetin e 30 mg capsule,d elayed release TK 1 C PO BID 03/24 completed Not Available Not Available Not Available Lyrica 100 mg capsule TAKE 1 CAPSULE BY MOUTH 2x daily 2008 active Not Available Not Available Not Avai lable Lyrica 150 mg capsule TK 1 C PO BID 03/24 completed Not Available Not Available Not Available GaviLyte- G 236 gram-22.7 4 gram-6.74 gram-5.86 gram oral solution MIX AND DRINK DIRECTED 06/10 completed Not Available Not Available Not Available Fish Oil 1,000 mg (120 mg-180 mg) capsule Take 1 capsule every day by oral route in the morning for 90 days. 06/10 completed not taking 09/08/21 mK Not Available Not Available Not Available COVID-19 test specimen collectio n TEST DIRECTED TODAY 06/10 completed Not Available Not Available Not Available BinaxNOW COVID-19 Ag Self Test kit Use as Directed on the Package 06/10 completed Not Available Not Available Not Available Vitals None Recorded Social History Question Answer Notes LastModified by Organizat ion Details LastModified Time Tobacco Smoking Status Never Smoker Katharina York RN [facility], [facility] 03/15/2022 12:15:40 Do You Have An Advance Directive? No Form Given [email or web address] Information not available 05/01/2009 What Is Your Level Of Alcohol Consumption? None [email or web address] Information not available 06/10/2022 Are You Blind Or Do You Have Difficulty Seeing? Yes Wears Glasses Information not available 04/06/2013 What Is Your Level Of Caffeine Consumption? Moderate 2-3 Cups Of Coffee Daily. Information not available 05/20/2020 How Much Tobacco Do You Chew? None Information not available 01/14/2011 Are You Currently Employed? Yes Information not available 06/09/2021 Are You Deaf Or Do You Have Serious Difficulty Hearing? Yes Information not available 04/06/2013 What Type Of Diet Are You Following? REGULAR [id number] Information not available 01/14/2011 Which Illicit Or Recreational Drugs Have You Used? None [email or web address] Information not available 04/06/2016 Do You Or Have You Ever Used E-cigarettes Or Vape? Never Used Electronic Cigarettes Information not available 05/08/2020 What Is Your Occupation? [employer]ke [email or web address] Information not available 12/18/2020 Have There Been Any Changes To Your Family Or Social Situation? No Information not available 06/09/2021 How Many Days In The Past Year Have You Had A Heavy Drinking Consumption (4+ Female, 5+ Male)? 0 Information not available 04/25/2018 Are There Any Guns Present In Your Home? No Information not available 04/06/2013 Live Alone Or With Others? With Others Living With Daughter Information not available 09/12/2008 Patient Has Health Care Proxy Signed And In Chart Yes Information not available 12/10/2020 MOLST Form Signed And In Chart 01/03/2023 Information not available 01/05/2023 Marital Status Informati on not available 12/19/2012 Mosquito Repellent Used Routinely Yes Information not available 04/25/2018 What Was The Date Of Your Most Recent Tobacco Screening? 01/17/2024 [email or web address] Information not available 01/17/2024 How Many Children Do You Have? 4 Information not available 12/19/2012 What Is Your Relationship Status? Single Information not available 06/09/2021 Do You Use Your Seat Belt Or Car Seat Routinely? Yes Information not available 05/12/2021 Seat Belts Used Routinely Yes Information not available 04/06/2013 Are You Sexually Active? Yes Information not available 01/14/2011 Smoke Alarm In Home Yes [email or web address] Information not available 04/06/2013 Do You Have Smoke And Carbon Monoxide Detectors In Your Home? Yes Information not available 06/09/2021 Are You Passively Exposed To Smoke? No Information not available 06/09/2021 Do You Or Have You Ever Used Smokeless Tobacco? Never Used Smokeless Tobacco Information not available 05/08/2020 How Much Tobacco Do You Smoke? No Information not available 06/25/2020 What Types Of Sporting Activities Do You Participate In? None Information not available 04/15/2017 General Stress Level Medium Information not available 05/20/2020 Do You Use Any Illicit Or Recreational Drugs? No Information not available 05/12/2021 Do You Use Sunscreen Routinely? Yes Information not available 04/25/2018 How Many Years Have You Smoked Tobacco? 0 Information not available 06/25/2020 Do You Or Have You Ever Used Any Other Forms Of Tobacco Or Nicotine? No Information not available 06/09/2021 Sex: Female Functional Status Question Answer Note LastModified by Organizat ion Details LastModified Time Do you have difficulty walking or climbing stairs? Yes climbing stairs/knees hurt Information not available 04/06/2013 Do you have difficulty doing errands alone? No Information not available 04/06/2013 Do you have difficulty dressing or bathing? No Information not available 04/06/2013 What is your exercise level? Moderate Information not available 06/09/2021 Mental Status Question Answer Note LastModified by Organizat ion Details LastModified Time Do you have difficulty concentrating, remembering or making decisions? Yes Information n ot available 04/06/2013 Family History Relationship Description Onset Age of this Age Resolved Age Notes LastModified by Organization Details LastModified Time Father Dementia 93 100 Not availab le 01/17/2024 12:34:11 Father Heart disease later in life [email or web address] Not available 04/06/2016 09:39:24 Mother Diabetes mellitus 75 BKA [email or web address] Not available 2015 09:08:13 Mother Hypertensive disorder Mom age 75 Not available 05/20/2020 09:37:27 Sister Diabetes mellitus [email or web address] Not available 2015 09:08:13 Brother Diabetes mellitus [email or web address] Not available 2015 09:08:13 Notes:No colon, breast or ov ran cancer No early CAD No depression or alcoholism Medical History Condition Response Fibromyalgia Y Irritable Bowel Syndrome Y Depression Y Gynecological History Statement/Question Response Hysterectomy N History of Abnormal Pap N Date of LMP 02/28/2009 Obstetrics History GPAL:G 0 P 0 0 0 0 Past Encounters Encounter ID Performer Location Encounter Start Date Encounter Closed Date Diagnosis/Indication Diagnosis SNOMED-CT Code Diagnosis ICD10 Code Diagnosis Note [id number] , [facility], OFFICE [address] [place] [address] 05/14/2005 11:51:40 05/15/2005 10:52:08 [id number] LAB - [facility] [address] [place] [address] 05/14/2005 13:18:22 05/14/2005 13:18:46 [id number] Radiology , [facility] [address] [place] [address] 05/17/2005 12:37:25 05/18/2005 08:43:10 [id number] , [facility] [address] [place] [address] 05/24/2005 11:37:06 03/20/2008 02:02:29 [id number] [facility], OFFICE [address] [facility] GERRI POLO62[address] 6 05/26/2005 10:51:49 05/26/2005 14:13:59 [id number] Physical Therapy, [facility] [address] G[place] Dougherty62-[address] 6 06/01/2005 13:24:56 03/20/2008 02:02:29 [id number] [facility], OFFICE [address] [facility] [place] [address] 06/07/2005 12:58:30 06/07/2005 15:56:01 [id number] [facility], OFFICE [address] [facility] [place] [address] 07/02/2005 10:37:08 07/02/2005 16:38:08 [id number] [facility] , [facility] [address] GER[place] Dougherty62-146 6 07/02/2005 11:51:54 07/05/2005 09:19:58 [id number] [facility], OFFICE [address] [facility] [place] [address] 01/19/2006 09:30:38 01/19/2006 16:27:47 [id number] [facility] - [facility] 70 [facility] [place] [address] 01/19/2006 10:55:38 01/19/2006 10:56:39 [id number] Eye Care, [facility] Mati [facility] [place] [address] 02/07/2006 12:40:50 02/07/2006 16:41:05 [id number] Optical, [facility] 70 [facility] [place] [address] 02/07/2006 15:04:40 02/07/2006 16:58:08 [id number] [facility], OFFICE [address] [facility] GERRI POLO62-146 6 02/07/2006 14:50:59 02/08/2006 11:02:51 [id number] Radiology , [facility] GERRI Lorenz62-146 6 04/22/2006 10:34:07 04/25/2006 09:49:52 [id number] Physical Therapy, [facility] GERRI Lorenz62-146 6 06/27/2006 10:09:04 06/30/2006 13:55:12 [id number] Physical Therapy, [facility] GERRI Lorenz-146 6 07/06/2006 11:18:38 07/07/2006 08:41:28 [id number] Physical Therapy, [facility] GERRI Lorenz146 6 07/13/2006 11:24:29 07/13/2006 15:35:35 [id number] Physical Therapy, [facility] GERRI Lorenz62-146 6 07/20/2006 11:15:59 07/20/2006 15:57:12 [id number] Physical Therapy, [facility] GERRI Lorenz-146 6 07/27/2006 11:14:14 07/27/2006 14:14:08 [id number] Physical Therapy, [facility] GERRI Lorenz62-146 6 08/03/2006 11:12:55 08/04/2006 11:16:07 [id number] LAB - [facility] GERRI Lorenz62-146 6 12/08/2007 07:10:44 12/08/2007 07:10:56 [id number] [facility], OFFICE [address] G[place]RI CLARK62-146 6 12/07/2007 13:52:29 03/20/2008 02:02:29 [id number] PHOEBE [facility], OFFICE [address] [place] [address] 12/12/2007 13:25:36 03/20/2008 02:02:29 [id number] PHOEBE [facility], OFFICE [address] G[place] CLARK62-146 6 12/08/2007 15:02:37 12/08/2007 15:49:59 [id number] [facility], OFFICE [address] [place] [address] 09/12/2008 13:26:50 09/18/2008 08:13:27 [id number] [facility], OFFICE [address] [place] [address] 09/27/2008 08:47:54 10/01/2008 14:28:56 [id number] LAB - [facility] [address] [place] [address] 09/12/2008 14:02:07 09/12/2008 14:02:16 [id number] LAB - [facility] [address] [place] [address] 09/27/2008 09:36:56 09/27/2008 09:37:06 [id number] John Salter [facility], OFFICE [address] [place] [address] 02/25/2009 15:22:34 02/26/2009 11:36:32 [id number] Mariza Greer MA , [facility], OFFICE [address] [place] [address] 05/01/2009 13:50:59 05/02/2009 13:22:28 [id number] [facility] , [facility] [address] [place] [address] 05/05/2009 12:46:07 05/06/2009 13:46:24 [id number] [facility], OFFICE [address] [place] [address] 6 05/09/2009 11:37:40 05/09/2009 14:39:41 [id number] [facility], OFFICE [address] [place] [address] 6 05/13/2009 11:06:24 05/15/2009 09:38:00 [id number] [facility] , [facility] [address] [place] [address] 05/13/2009 11:51:40 05/14/2009 11:34:53 [id number] John Salter [facility], OFFICE [address] [place] [address] 08/05/2009 10:50:02 08/06/2009 10:08:01 [id number] Radiology , [facility] [address] [place] [address] 08/14/2009 08:14:12 08/15/2009 10:57:33 [id number] [facility], [address]ICE [address] [place] [address] 6 08/15/2009 13:37:51 08/15/2009 17:40:02 [id number] Radiology , [facility] [address] [place] [address] 02/18/2010 11:45:31 02/19/2010 11:33:20 [id number] , [facility], OFFICE [address] [place] [address] 02/24/2010 15:58:29 02/26/2010 08:25:35 [id number] Radiology , [facility] [address] [place] [address] 6 02/25/2010 13:58:54 02/26/2010 14:13:57 [id number] , [facility], OFFICE [address] [place] [address] 02/26/2010 16:11:16 03/02/2010 13:51:42 [id number] Mariza Calderon NP , [facility], OFFICE [address] [place] [address] 12/19/2012 11:20:40 12/19/2012 12:04:19 [id number] Mariza Calderon NP , [facility], OFFICE [address] [place] [address] 03/14/2013 10:04:05 03/14/2013 10:43:03 [id number] Kerline Negron , [facility], OFFICE [address] [place] [address] 6 04/06/2013 09:46:21 04/06/2013 10:50:52 [id number] Nancy Hill [facility] -[facility] [address] [place] [address] 05/29/2013 08:40:19 06/01/2013 15:28:26 [id number] , [facility], OFFICE [address] [place] [address] 08/08/2013 15:27:27 08/08/2013 16:35:30 [id number] HAWK Martinez , [facility], OFFICE [address] [place] [address] 08/09/2013 10:45:20 08/09/2013 13:53:36 [id number] Kehinde Man , PT Physical Therapy, [address] [address] 09/11/2013 10:04:17 09/13/2013 07:47:38 [id number] Kehinde Man , PT Physical Therapy, [facility] [address] [place] [address] 6 09/18/2013 10:44:22 09/18/2013 12:47:48 [id number] , [facility], OFFICE [address] [place] [address] 6 10/02/2013 10:31:00 10/02/2013 11:00:44 [id number] Yuli Moncada , [facility], OFFICE [address] [place] [address] 12/10/2013 11:54:41 12/10/2013 12:41:35 [id number] Yuli Moncada Physical Therapy, [address] [address] 12/10/2013 12:43:24 12/13/2013 07:34:55 [id number] Kehinde Man , PT Physical Therapy, [address] [address] 12/13/2013 09:37:27 12/14/2013 15:29:00 [id number] Sarah Dunbar , [facility], OFFICE [address] [place] [address] 09/18/2014 13:54:32 09/18/2014 14:08:25 [id number] Ellyn Duarte , [facility], OFFICE [address] [place] [address] 6 09/24/2014 08:15:05 09/24/2014 09:05:50 [id number] Leeanne Yoo Podiatry, [address] [address] 10/29/2014 11:07:16 11/25/2014 13:31:49 [id number] MIGUEL Sadler, [facility], OFFICE [address] [place] [address] 04/04/2015 08:36:12 04/04/2015 09:53:28 [id number] MIGUEL Sadler, [facility], OFFICE [address] [place] [address] 05/02/2015 09:28:04 05/02/2015 10:50:48 [id number] Yolis cervantes, PT Physical Therapy, [address] [address] 06/10/2015 09:49:24 06/10/2015 12:57:53 [id number] MIGUEL Sadler, [facility], OFFICE [address] [place] [address] 06/11/2015 10:43:28 06/16/2015 08:37:57 [id number] Yolis cervantes, PT Physical Therapy, [facility] [address] [place] [address] 6 06/18/2015 10:35:37 06/18/2015 12:32:31 [id number] MIGUEL Sadler, [facility], OFFICE [address] [place] [address] 6 08/29/2015 14:04:37 08/29/2015 14:54:53 [id number] Yolis cervantes, PT Physical Therapy, [address] [address] 09/08/2015 08:30:52 09/09/2015 07:24:13 [id number] MIGUEL Sadler, [facility], OFFICE [address] [place] [address] 10/21/2015 09:22:39 10/24/2015 15:02:03 [id number] Kehinde Renteria, DPM Podiatry, [address] [address] 10/22/2015 08:45:13 11/13/2015 13:37:11 [id number] Ann Reyez, OD Eye Care, [address] [address] 02/12/2016 13:54:58 03/12/2016 11:25:31 [id number] Kiersten Ruiz NP FP, [facility], OFFICE [address] [place] [address] 04/06/2016 08:31:40 04/06/2016 11:27:32 [id number] Kehinde Man , PT Physical Therapy, [address] [address] 6 04/13/2016 10:51:06 04/14/2016 11:52:58 [id number] Kehinde Man , PT Physical Therapy, [address] [address] 6 04/22/2016 10:08:43 04/22/2016 12:12:00 [id number] Kehinde Man , PT Physical Therapy, [facility] [address] [place] [address] 6 04/29/2016 09:40:24 04/30/2016 10:36:00 [id number] Kehinde Man , PT Physical Therapy, [address] [address] 05/04/2016 08:34:20 05/04/2016 09:33:47 [id number] Kehinde Man , PT Physical Therapy, [address] [address] 05/10/2016 11:32:22 05/10/2016 13:31:34 [id number] Kelsie Tejeda MD , [facility], OFFICE [address] [place] [address] 03/24/2017 14:25:18 03/25/2017 08:39:05 [id number] HAWK Martinez , [facility], OFFICE [address] [place] [address] 03/29/2017 09:32:58 03/29/2017 10:53:33 [id number] Ann Reyez, OD Eye Care, [facility] [address] [place] [address] 03/30/2017 08:29:16 03/30/2017 09:12:26 [id number] HAWK Martinez , [facility], OFFICE [address] [place] [address] 04/15/2017 10:19:08 04/15/2017 11:28:48 [id number] HAWK Martinez , [facility], OFFICE [address] [place] [address] 10/18/2017 10:55:00 10/18/2017 12:40:48 [id number] Fay Steele DPM Podiatry, [address] [address] 12/20/2017 13:33:04 12/22/2017 10:39:26 [id number] , [facility], OFFICE [address] [place] [address] 01/18/2018 08:50:11 01/20/2018 10:32:17 [id number] Ann Reyez, OD Eye Care, [address] [address] 04/03/2018 09:27:17 04/03/2018 10:32:54 [id number] HAWK Martinez, [facility], OFFICE [address] [place] [address] 04/25/2018 11:30:57 04/25/2018 12:19:07 [id number] MIGUEL Mcmahon, [facility], OFFICE [address] [place] [address] 05/08/2020 09:51:39 05/09/2020 13:18:58 [id number] Angela Mcintosh, PT Physical Therapy, [facility] [address] [place] [address] 05/13/2020 13:36:11 05/14/2020 08:45:33 [id number] Angela Mcintosh, PT Physical Therapy, [address] [address] 05/19/2020 11:47:01 05/19/2020 14:13:03 [id number] MIGUEL Mcmahon, [facility], OFFICE [address] [place] [address] 05/20/2020 08:59:57 05/26/2020 13:00:50 [id number] Angela Mcintosh, PT Physical Therapy, [address] [address] 6 05/22/2020 12:31:25 05/22/2020 16:19:48 [id number] HAWK Martinez, [facility], OFFICE [address] [place] [address] 6 06/25/2020 12:13:55 06/26/2020 10:19:21 [id number] Ann Reyez, OD Eye Care, [address] [place] [address] 09/02/2020 09:26:52 09/02/2020 13:56:40 [id number] MD PHOEBE Singh, [facility], OFFICE [address] [place] [address] 11/19/2020 11:19:43 11/19/2020 11:58:06 [id number] JESUS Mon, [facility], OFFICE [address] [place] [address] 12/09/2020 09:52:07 12/09/2020 10:16:45 [id number] Angela Mcintosh, PT Physical Therapy, [facility] [address] [place] [address] 12/10/2020 11:50:47 12/11/2020 14:45:05 [id number] Angela Mcintosh, PT Physical Therapy, [address] [address] 12/17/2020 10:03:47 12/17/2020 13:17:07 [id number] MIGUEL Mcmahon, [facility], OFFICE [address] [place] [address] 12/18/2020 09:30:14 12/23/2020 15:32:50 [id number] Angela Mcintosh, PT Physical Therapy, [address] [address] 12/24/2020 10:12:03 12/25/2020 09:43:24 [id number] Kelsie Tejeda MD , [facility], OFFICE [address] [place] [address] 12/31/2020 10:24:56 12/31/2020 12:05:50 [id number] Angela Mcintosh, PT Physical Therapy, [address] [address] 01/08/2021 09:37:02 01/08/2021 11:33:27 [id number] Angela Mcintosh, PT Physical Therapy, [address] [address] 02/06/2021 11:39:29 02/06/2021 13:49:29 [id number] BLAKE Miner FP, [facility], [address]ICE [address] [place] [address] 02/06/2021 13:22:35 02/19/2021 15:41:47 [id number] MIGUEL Mcmahon, [facility], OFFICE [address] [place] [address] 05/12/2021 10:57:26 05/12/2021 11:38:43 [id number] MIGUEL Mcmahon, [facility], OFFICE [address] [place] [address] 06/09/2021 09:58:58 06/24/2021 16:02:44 [id number] Yolis cervantes, PT Physical Therapy, [facility] [address] [place] [address] 06/30/2021 11:32:37 06/30/2021 12:38:48 [id number] Gerard Bowser MD Rheumatol ogy, [facility] [address] [place] [address] 07/03/2021 07:51:54 07/05/2021 15:14:26 [id number] Yolis cervantes, PT Physical Therapy, [facility] [address] [place] [address] 07/14/2021 11:59:53 07/14/2021 13:31:43 [id number] MIGUEL Mcmahon, [facility], OFFICE [address] [place] [address] 09/08/2021 14:37:41 09/10/2021 14:41:38 [id number] Digna Ngo RN Endoscopy , [facility] [address] [place] [address] 03/22/2022 12:01:07 03/22/2022 14:55:46 [id number] MIGUEL Travis, [facility], OFFICE [address] [place] [address] 06/10/2022 08:25:58 06/10/2022 09:27:44 [id number] MIGUEL Travis, [facility], OFFICE [address] [place] [address] 10/26/2022 08:24:15 10/26/2022 17:47:01 [id number] MIGUEL Mcmahon, [facility], [address] [place] [address] 01/03/2023 12:43:39 01/07/2023 15:36:07 [id number] Kehinde Renteria DPM Podiatry, [facility] [address] [place] [address] 03/10/2023 09:29:43 03/11/2023 13:15:59 [id number] Sara Mckeon NP , [facility], [address] [place] [address] 05/04/2023 09:24:42 05/04/2023 11:33:13 [id number] Sara Mckeon NP , [facility], [address] [place] [address] 01/17/2024 11:40:07 01/25/2024 14:16:16 [id number] Nick Graham PSYD , [facility], [address] [place] [address] 04/04/2024 10:39:28 04/04/2024 15:22:21 Health Concerns Section Related Observation LastModified by Organization Detai ls LastModified Time None Recorded Concern Status LastModified by Organization Details LastModified Time None Recorded Advance Directives Directive N: form given Payers Encounter Date Sequence Insurance Name Policy Number Policy Rodríguez Covered Member ID Rodríguez Member ID Guarantor Name 01/03/2023 1 [employer] (POS) [id number] Keira Alvarado Kyle [id number] Keira Keatingon 05/04/2023 1 [employer] (POS) [id number] Keira Alvarado Kyle [id number] Keira Wright 01/17/2024 1 [employer] (POS) [id number] Keira Alvarado Kyle [id number] Keira Keatingon 04/04/2024 1 [employer] (POS) [id number] Keira Keatingon [id number] Keira Wright OBGyn Episode No OBEpisode recorded.
== END 2024-06-22 16:16 | disposition home or self-care (01) ==
LOC: HO.RHE 15:47
PROVIDERS: PCP Family Medicine; Visit Provider Student in an Organized Health Care Education/Training Program
DX: M13.80 Other specified arthritis, unspecified site (principal); Z79.60 Long term (current) use of unspecified immunomodulators and immunosuppressants
CPT/HCPCS: 99214; G2211

== ENCOUNTER 2024-06-22 15:47 | Outpatient (REF) | payer OTHER, SELFPAY ==
[2024-06-22 16:31] LABS: MANUAL DIFF FLAG NO
[2024-06-22 16:46] LABS: Basophils Absolute Auto 0.1 X10*3/uL (0.0-0.2); Basophils Percent Auto 1.7 % (0-2); Eosinophils Absolute Auto 0.3 X10*3/uL (0.0-0.4); Eosinophils Percent Auto 6.4 % (0-4); Hematocrit 40.4 % (37.0-47.0); Hemoglobin 13.1 g/dl (12.0-16.0); Imm Gran Abs Auto 0.01 X10*3/uL (0.00-0.03); Imm Gran Pct Auto 0.2 % (0.0-0.4); Lymphocytes Absolute Auto 1.3 X10*3/uL (1.2-4.9); Lymphocytes Percent Auto 31.5 % (20-40); Mean Corpuscular HGB Conc 32.4 g/dl (31.0-35.0); Mean Corpuscular Hemoglobin 27.7 pg (27.0-33.0); Mean Corpuscular Volume 85.4 fL (80.0-98.0); Mean Platelet Volume 9.9 fL (9.4-12.3); Monocytes Absolute Auto 0.3 X10*3/uL (0.1-1.2); Monocytes Percent Auto 7.6 % (2-11); Neutrophils Absolute Auto 2.1 x10*3/uL (2.0-8.3); Neutrophils Percent Auto 52.6 % (45-73); Platelet Count 209 X10*3/uL (160-400); Red Blood Count 4.73 X10*6/uL (4.20-5.50); Red Cell Distribution Width 16.3 % (11.0-16.0); White Blood Count 4.1 X10*3/uL (4.8-10.8)
[2024-06-22 17:14] LABS: Alanine Aminotransferase 35 U/L (0-31); Albumin Level 4.2 g/dL (3.5-5.0); Alkaline Phosphatase 135 U/L (39-117); Anion Gap 11 (12-20); Aspartate Amino Transferase 30 U/L (5-31); Bilirubin Total 0.3 mg/dL (0.0-1.0); Blood Urea Nitrogen 11 mg/dL (9-16); C Reactive Protein 1.07 mg/dL (< or = 0.50); Calcium 9.5 mg/dL (8.4-10.2); Carbon Dioxide 25 mmol/L (22-29); Chloride 108 mmol/L (96-108); Estimated Glomerular Filt Rate > 60; Glucose Random 97 mg/dL (60-115); Potassium 3.8 mmol/L (3.3-5.1); Sodium 140 mmol/L (135-145); Total Protein 7.1 g/dL (6.5-8.0)
[2024-06-22 17:23] LABS: Erythrocyte Sedimentation Rate 24 MM/HR (0-20)
[2024-06-23 03:41] LABS: HBc Num1 0.08 S/CO (0.00-0.79); HBsAGNum1 0.43 S/CO (0.00-0.99); Hepatitis B Core Antibody Nonreactive (Nonreactive); Hepatitis B Surface Antigen Negative (Negative); ~HepC Num1 0.04 S/CO (0.00-0.79); ~Hepatitis B Surface Antibody NONREACTIVE (Nonreactive); ~Hepatitis C Antibody Nonreactive (Nonreactive)
[2024-06-25 00:08] LABS: TS Negative Control Passed; TS Panel A 2; TS Panel B 0; TS Positive Control Passed; TSpotTB Negative (Negative)
[2024-06-26 08:00] LABS: Hepatitis A Antibody IgM 0.17 Index (0-0.79); ~Hepatitis A Antibody IgM Nonreactive (Nonreactive)
== END 2024-06-22 15:48 | disposition home or self-care (01) ==
LOC: HO.LAB 15:47
PROVIDERS: PCP Family Medicine; Visit Provider Student in an Organized Health Care Education/Training Program
DX: M13.80 Other specified arthritis, unspecified site (principal)
CPT/HCPCS: 36415; 80053; 85025; 85652; 86140; 86481; 86704; 86706; 86709; 86803; 87340

== ENCOUNTER 2024-11-28 12:17 | Outpatient (REF) | payer OTHER, SELFPAY ==
[2024-11-28 18:10] LABS: MANUAL DIFF FLAG NO
[2024-11-28 18:15] LABS: Hematocrit 41.1 % (37.0-47.0); Hemoglobin 12.9 g/dl (12.0-16.0); Imm Gran Abs Auto 0.01 X10*3/uL (0.00-0.03); Imm Gran Pct Auto 0.2 % (0.0-0.4); Lymphocytes Absolute Auto 1.2 X10*3/uL (1.2-4.9); Mean Corpuscular HGB Conc 31.4 g/dl (31.0-35.0); Mean Corpuscular Hemoglobin 28.2 pg (27.0-33.0); Mean Corpuscular Volume 89.7 fL (80.0-98.0); NRBC Abs Auto 0.000 X10*3/uL (0.0-0.012); NRBC Pct Auto 0.0 /100WBC (0.0-0.2); Platelet Count 213 X10*3/uL (160-400); Red Blood Count 4.58 X10*6/uL (4.20-5.50); White Blood Count 5.5 X10*3/uL (4.8-10.8)
[2024-11-28 18:26] LABS: Alanine Aminotransferase 91 U/L (0-31); Albumin Level 4.2 g/dL (3.5-5.0); Alkaline Phosphatase 129 U/L (39-117); Anion Gap 12 (12-20); Aspartate Amino Transferase 77 U/L (5-31); Blood Urea Nitrogen 8 mg/dL (9-16); Calcium 8.9 mg/dL (8.4-10.2); Carbon Dioxide 25 mmol/L (22-29); Chloride 110 mmol/L (96-108); Estimated Glomerular Filt Rate > 60; Potassium 3.9 mmol/L (3.3-5.1); Sodium 143 mmol/L (135-145); Total Protein 6.9 g/dL (6.5-8.0)
== END 2024-11-28 12:18 | disposition home or self-care (01) ==
LOC: HO.HKASLDS 12:17
PROVIDERS: PCP Family Medicine; Visit Provider Student in an Organized Health Care Education/Training Program
DX: M13.80 Other specified arthritis, unspecified site (principal); Z79.60 Long term (current) use of unspecified immunomodulators and immunosuppressants
CPT/HCPCS: 36415; 80053; 85025; 85652; 86140

== ENCOUNTER 2024-11-28 12:17 | Outpatient (AMB) | payer OTHER, SELFPAY ==
--- NOTE | 2024-11-28 12:54 | A.OFFVIS_ITS ---
Vital Signs 11/28/24 12:57 Height 5 ft 3 in Weight 179 lb 14.355 oz BMI 31.9 BP 122/80 Blood Pressure Location Lt brachial Position Sitting Pulse 85 Pulse Source Pulse Oximeter Pulse Oximetry (%) 98 Oxygen Delivery Method Room Air Intake Visit Reasons: f/u seronegative inflammatory arthritis Intake Note: Patient presents for seronegative inflammatory arthritis follow up. Allergies No Known Allergies Allergy (Verified 11/28/24 12:56) Medication List - Last Reconciled 11/28/24 by Dorothy Lizama MD folic acid 1 mg PO DAILY lisinopril 5 mg PO DAILY methotrexate sodium 12.5 mg (5 x 2.5 mg) PO QWEEK 90 days omeprazole 20 mg PO DAILY PRN HPI Comments Details: Patient is a 64-year-old female with hypertension and seronegative inflammatory arthritis/erosive OA who presents today for follow up Interval History: Patient last seen 06/22/24 with me. - On methotrexate 12.5mg weekly PO and folic acid 1mg daily - At that time she was following up for her seronegative inflammatory arthritis/erosive osteoarthritis on methotrexate and folic acid. - She had no complaints and was in remission Today, - On methotrexate 12.5mg weekly PO and folic acid 1mg daily - Patient reports she continues to do well - Was standing on a chair and felt a sharp pain go through the medial knee, currently in PT - Also complaining of hand achyness Rheumatologic History: Patient presented for evaluation of polyarthralgias including joint pain. X- rays showed evidence of erosive osteoarthritis. Currently treating with immunosuppression. ESR and CRP were normal Current Rheumatology Medication(s): Methotrexate 12.5 mg every week Folic acid 1 mg daily [facility] Medical History Stops taking medication too soon Long-term use of immunosuppressant medication Lumbar spondylolysis Seronegative inflammatory arthritis Piriformis syndrome of left side Inflammatory arthritis Left sciatic nerve pain Sciatica associated with disorder of lumbar spine Hand pain, right Hand pain, left Primary osteoarthritis involving multiple joints Polyarthralgia Sleep apnea [facility] (current) use of non-steroidal anti-inflammatories (nsaid) Sciatic leg pain Fibromyalgia Surgical History Hx of hysterectomy Family History Mother Arthritis Diabetes Social History Household Members: Children Alcohol intake: current Alcohol intake frequency: holidays/special occasions only Patient Tobacco Use Status: Never used Tobacco Current occupational status: employed Current occupation: [employer] at [employer] Review of Systems Const Details: Review of Systems Constitutional: Denies fever, chills, weight loss ENT: Denies vision changes, eye pain or eye redness, dental caries, dry mouth GI: Denies nausea, vomiting, diarrhea, abdominal pain, change in BM Pulm: Denies SOB, RUEDA, hemoptysis, wheezing Cards: Denies chest pain, palpitations Skin: Denies Raynaud's, rash, nail changes, photosensitivity, ATTACHER: Denies headaches, weakness, paresthesias, recurrent falls MSK: as per HPI All other systems reviewed and are unremarkable except noted above Physical Exam Exam Exam: Vital signs reviewed Physical Examination CONSTITUITIONAL Patient alert and cooperative. Well appearing and in no apparent painful distress MSK Hands * Right Hand: Able to make a fist. No swelling or tenderness to palpation of the MCPs, PIPs or DIPs. * Left Hand: Able to make a fist. No swelling or tenderness to palpation of the MCPs, PIPs or DIPs. * Prominent Herbedens and Bouchards nodes noted bilaterally Wrists * Right Wrist: Full ROM to flexion and extension. No swelling or TTP * Left Wrist: Full ROM to flexion and extension. No swelling or TTP Elbows * Right Elbow: Full ROM. No swelling or TTP. No TTP of the medial epicondyle. No TTP of the lateral epicondyle * Left Elbow: Full ROM. No swelling or TTP. No TTP of the medial epicondyle. No TTP of the lateral epicondyle Shoulders * Right shoulder: Full ROM. No swelling noted. No TTP of the AC joint. No TTP of the subacromial bursa. No TTP of the posterior shoulder * Left shoulder: Full ROM. No swelling noted. No TTP of the AC joint. No TTP of the subacromial bursa. No TTP of the posterior shoulder Hip bursa: No tenderness to palpation bilaterally Knees * Right knee: Full ROM. No swelling noted. No TTP of the knee joint line. No TTP of pes anserine bursa * Left knee: Full ROM. No swelling noted. No TTP of the knee joint line. Mild TTP of pes anserine bursa. Ankles * Right ankle: Good ankle dorsiflexion and plantar flexion. No swelling. No TTP of the ankle joint * Left ankle: Good ankle dorsiflexion and plantar flexion. No swelling. No TTP of the ankle joint Feet * Right foot: Negative squeeze test * Left foot: Negative squeeze test Tender points? * No tenderness to palpation of the bilateral trapezius, supraspinatus, anterior costochondral junctions, bilateral suboccipital muscle insertions SKIN No rashes Vital Signs: Last Vital Signs Pulse 85 11/28/24 12:57 BP 122/80 11/28/24 12:57 Pulse Ox 98 11/28/24 12:57 Oxygen Delivery Method Room Air 11/28/24 12:57 BMI result Body Mass Index 31.9 Results Reviewed Results Reviewed: Laboratory Tests 02/07/24 06/22/24 16:05 16:29 WBC 4.1 L RBC 4.73 Hgb 13.1 Hct 40.4 Plt Count 209 ESR 23 H 24 H Sodium 140 Potassium 3.8 Chloride 108 Carbon Dioxide 25 BUN 11 Creatinine 0.66 AST 30 ALT 35 H C-Reactive Protein 0.92 H 1.07 H Assessment & Plan Assessment & Plan (1) Seronegative inflammatory arthritis: Comment: 01/2023 Start MTX Code(s): M13.80 - Other specified arthritis, unspecified site Category: Medical Plan: #Erosive OA/seronegative inflammatory arthritis Patient is a 63-year-old female with seronegative inflammatory arthritis/erosive osteoarthritis here today for follow up. Currently in remission. Transaminitis improved Check Knee XRs Plan - Methotrexate 12.5mg weekly - Folic acid 1mg daily - labs today: CBC, CMP, ESR, CRP - XR: Bilateral Knees - RTC 6 months - Labs before visit: CBC, CMP, ESR, CRP (2) Long-term use of immunosuppressant medication: Code(s): Z79.60 - psychologist educational (current) use of unspecified immunomodulators and immunosuppressants Category: Medical Plan: #Long-term Current Use of Methotrexate Discussed with patient the benefits and risks of methotrexate for managing their rheumatic condition Benefits include reduced pain, reduced mortality, maintenance of remission and reduction of flares Risks include oral ulcers, photosensitivity, hepatotoxicity, hematologic toxicity, pneumonitis, flu-like symptoms (especially day after administration), nodulosis, lymphomas ? Limit alcohol and avoid Bactrim ? Monitoring: ?CBC, BMP, LFTs every 3-4 months and hepatitis serologies as needed Plan I spent 25 minutes reviewing the record and labs, seeing the patient, discussing the treatment plan and documenting in the medical record ? Orders: Orders Comprehensive Met. Panel 6 Months Z79.899 - Other rolling up machine operator (current) drug therapy Erythrocyte Sedimentation Rate 6 Months Z79.899 - Other rolling up machine operator (current) drug therapy Complete Blood Count Auto Diff 6 Months Z79.899 - Other rolling up machine operator (current) drug therapy C Reactive Protein 6 Months Z79.899 - Other usp (current) drug therapy Medications: New diclofenac sodium 1% (Arthritis Pain (diclofenac)) Apply to right knee 4 times a day 4 grams topical QID 100 grams 5RF M15.9 - Polyosteoarthritis, unspecified Refilled methotrexate sodium 12.5 mg (5 x 2.5 mg) PO QWEEK 65 tabs 1RF 90 days M19.90 - Unspecified osteoarthritis, unspecified site folic acid 1 mg PO DAILY 90 tabs 1RF M13.80 - Other specified arthritis, unspecified site Coding Level of Care Code Est Pt Level 3 (26844) Complex EM visit Add On G2211 Diagnoses Seronegative inflammatory arthritis M13.80 Long-term use of immunosuppressant medication Z79.60
[2024-11-28 12:57] VITALS: BP 122/80; PULSE 85; O2SAT 98; BMI 31.9
--- OUTSIDE RECORDS SUMMARY | 2024-11-28 13:46 | XMS_ITS | Clinical Summary ---
Author Organization [facility] Address [address] [place] [address] Phone Care Team Providers Care Crisis Clinician Name Role Phone Mckeon Ophelia Villagran Primary Care Provider Allergies No known active allergies Medications ibuprofen (ADVIL,MOTRIN) 800 MG tablet TK 1 T PO WITH FOOD TID FOR 10 DAYS 0 03/29/2017 Active diazePAM (VALIUM) 5 MG tablet Take 1 tablet (5 mg total) by mouth every 6 (six) hours as needed for other (free text field) (Spasm). 5 tablet 09/02/2021 Active Active Problems No known active problems Social History Tobacco Use Types Packs/Day Years Used Date Smoking Tobacco: Never Smokeless Tobacco: Never Alcohol Use Standard Drinks/Week Comments No 0 (1 standard drink = 0.6 oz pur e alcohol) Education Answer Date Recorded Are you interested in more education? Not on alonso e 06/25/2022 Are you concerned about learning? Not on file 06/25/2022 No 06/25/2022 No 06/25/2022 Digital Access Answer Date Recorded No 07/24/2022 No 07/24/2022 No 07/24/2022 Reliable internet access at home? Not on file 07/24/2022 Device with a working camera? Not on file Comments Unknown Sex and Gender Information Value Date Recorded Sex Assigned at Female 03/27/2017 1:36 PM EST Legal Sex Female 9:48 PM EDT Gender Identity Female 03/27/2017 1:36 PM EST Sexual Orientation Straight 03/27/2017 1: 36 PM EST Last Filed Vital Signs Vital Sign Reading Time Taken Comments Blood Pressure 154/86 09/02/2021 10:57 PM EDT Pulse 79 09/02/2021 10:57 PM EDT Temperature 36.8 C (98.2 F) 09/02/2021 10:57 PM EDT Respiratory Rate 16 09/02/2021 10:57 PM EDT Oxygen Saturation 99% 09/02/2021 10:57 PM EDT Inhaled Oxygen Concentration - - Weight 81.2 kg (179 lb) 09/02/2021 9:11 PM EDT Height 160 cm (5' 3 ) 09/02/2021 9:11 PM EDT Body Mass Index 31.71 09/02/2021 9:11 PM EDT Plan of Treatment Health Maintenance Due Date Last Done Comments Adult Td,Tdap Booster 1959 LIPID PANEL 1959 DEPRESSION SCREENING 1971 HEPATITIS C SCREENING 11/13/1977 HIV ONE-TIME SCREENING (18-6 5 YEARS) 11/13/1977 MAMMOGRAM 1999 COLOGUARD 11/13/2004 COLONOSCOPY 11/13/2004 COLORECTAL CANCER SCREENING 11/13/2004 FIT TEST 11/13/2004 FOBT 11/13/2004 SIGMOIDOSCOPY 11/13/2004 VIRTUAL COLONOSCOPY 11/13/2004 PNEUMOCOCCAL VACCINES (50+ years) (1 of 1 - PCV) 11/13/2009 ZOSTER VACCINES (1 of 2) 11/13/2009 INFLUENZA VACCINE (#1) 2024 0, 11/15/2019, 11/21/2018 COVID-19 VACCINE (2 - 2024-2 6 season) 2024 06/12/2020 OSTEOPOROSIS SCREENING INITI AL (ONE-TIME) 11/13/2024 RSV VACCINE (1 - 1-dose 75+ series) 11/13/2034 SMOKING STATUS SCREENING (On ce After 26 Yrs) Completed 09/02/2021 HEPATITIS A VACCINES Aged Out No long er eligible based on patient's age to complete this topic HIB VACCINES Aged Out No longer eligi ble based on patient's age to complete this topic MENINGOCOCCAL VACCINES (ACWY) Aged Out No longer eligible based on patient's age to complete this topic MENINGOCOCCAL VACCINES (B) Aged Out N o longer eligible based on patient's age to complete this topic Medical Devices Not on file Insurance O POS EPO O POS EPO O [place] [address] [place] [address] [address] [place] [address]O [facility] E[facility] EPO Care Teams Crisis Clinician Relationship Specialty Start Date End Date Ophelia Mckeon DO [address] [place] [address] PCP - General Family Medicine 02/09/22 Additional Source Comments The information contained in this document represents components of the legal health record. It is not the complete legal health record.[facility]
--- OUTSIDE RECORDS SUMMARY | 2024-11-28 13:46 | XMS_ITS | Encounter Summary ---
Author Organization [facility] Address [address] [place] [address] Phone Care Team Providers Care Adjunct Sociology Professor Name Role Phone Ty Emery MD Primary Care Provider [phone] Ophelia Mckeon DO Primary Care Provider [phone] Encounter Details Date Type Department Care Team (Latest Contact Info) Description 02/02/2022 Transcribe Orders Virtual Department [address] [place] [address] Mohit Salgado MD [address] [address] [email or web address] Lower abdominal pain (Primary Dx) Social History Tobacco Use Types Packs/Day Years Used Date Smoking Tobacco: Never Smokeless Tobacco: Never Alcohol Use Standard Drinks/Week Comments No 0 (1 standard drink = 0.6 oz pur e alcohol) Comments Unknown Sex and Gender Information Value Date Recorded Sex Assigned at Female 03/27/2017 1:36 PM EST Legal Sex Female 9:48 PM EDT Gender Identity Female 03/27/2017 1:36 PM EST Sexual Orientation Straight 03/27/2017 1: 36 PM EST documented as of this encounter Plan of Treatment Not on file documented as of this encounter Results * US PELVIS TRANSABDOMINAL PLUS TRANSVAGINAL (02/09/2022 11:18 AM EST) Anatomical Region Laterality Modality Pelvis, Uterus/Adnexa Ultrasound 02/09/2022 11:3 7 AM EST Impressions 02/09/2022 11:40 AM EST 1. Normal sonographic appearance of the uterus. 2. Nonvisualization of the bilateral ovaries secondary to overlying bowel gas. Narrative 02/09/2022 11:40 AM EST US PELVIS TRANSABDOMINAL PLUS TRANSVAGINAL TECHNIQUE: Pelvic Ultrasound Transabdominal performed for global imaging of the pelvis. Pelvic Ultrasound Transvaginal performed for detailed imaging of the endometrium and/or adnexa. COMPARISON: There is no prior study available for comparison FINDINGS: Uterus: Size: 7.2 x 1.7 x 3.3 cm. Orientation: anteverted Myometrium: Normal. Endometrium: Normal. Thickness: 3 mm. Small nabothian cysts are demonstrated at the cervix. Right adnexa: The ovary is unable to be demonstrated sonographically secondary overlying bowel gas. Left adnexa: The ovary is unable to be demonstrated sonographically secondary overlying bowel gas. Free fluid: No significant free fluid. Procedure Note Kiara Kitchen MD - 02/09/2022 US PELVIS TRANSABDOMINAL PLUS TRANSVAGINAL TECHNIQUE: Pelvic Ultrasound Transabdominal performed for global imagingof the pelvis. Pelvic Ultrasound Transvaginal performed for detailedimaging of the endometrium and/or adnexa. COMPARISON: There is no prior study available for comparison FINDINGS: Uterus: Size: 7.2 x 1.7 x 3.3 cm. Orientation: anteverted Myometrium: Normal. Endometrium: Normal. Thickness: 3 mm. Small nabothian cysts are demonstrated at the cervix. Right adnexa: The ovary is unable to be demonstrated sonographically secondary overlyingbowel gas. Left adnexa: The ovary is unable to be demonstrated sonographically secondary overlyingbowel gas. Free fluid: No significant free fluid. IMPRESSION: 1. Normal sonographic appearance of the uterus. 2. Nonvisualization of the bilateral ovaries secondary to overlying bowelgas. Mohit Salgado MD [facility] [place] PELVIS Final Resu lt documented in this encounter Visit Diagnoses Diagnosis Lower abdominal pain- Primary Abdominal pain, other specified site Lower abdominal pain Abdominal pain, other specified site documented in this encounter Care Teams Adjunct Sociology Professor Relationship Specialty Start Date End Date Ty Emery MD [email or web address] PCP - General Family Medicine 03/23/17 02/08/22 Ophelia Mckeon DO [address] [place] [id number] [email or web address] PCP - General Family Medicine 02/09/22 documented as of this encounter Additional Source Comments The information contained in this document represents components of the legal health record. It is not the complete legal health record.[facility]
--- OUTSIDE RECORDS SUMMARY | 2024-11-28 13:47 | XMS_ITS | Encounter Summary ---
Author Organization [facility] Address [address] [place] [address] Phone Care Team Providers Care Crusher Screen Repairer Name Role Phone Ophelia Mckeon Primary Care Provider [phone] Encounter Details Date Type Department Care Team (Latest Contact Info) Description 04/07/2022 Transcribe Orders [facility] [address] [address] Shawanda Mcneal, MIGUEL [address] [place] [address] Lower abdominal pain (Primary Dx) Social History [...] documented as of this encounter Results * (ABNORMAL) C-Reactive Protein (04/07/2022 10:44 AM EST) C REACTIVE PROTEIN 10.2(H) 0.0 - 4.0 mg/L [facility] Blood 04/07/2022 10:4 4 AM EST 04/07/2022 10:49 AM EST us Shawanda Mcneal STOCK DRIER TENDER LAB BLOOD ORDERABLES Arin l Result [address] [address] * (ABNORMAL) Comprehensive metabolic panel (04/07/2022 10:44 AM EST) SODIUM 143 133 - 146 mmol/L [facility] POTASSIUM 4.0 3.3 - 5.1 mmol/L [facility] CHLORIDE 106 96 - 108 mmol/L [facility] CO2 28 21 - 35 mmol/L [facility] BUN 11 6 - 19 mg/dL [facility] CREATININE 0.50 0.5 - 1.5 mg/dL [facility] GLUCOSE 90 70 - 99 mg/dL [facility] ALBUMIN 4.4 3.9 - 4.8 g/dL [facility] TOTAL PROTEIN 7.7 6.5 - 8.0 g/dL [facility] CALCIUM 9.8 8.4 - 10.3 mg/dL [facility] ALKALINE PHOSPHATASE 143(H) 39 - 117 U/L [facility] TOTAL BILIRUBIN 0.2 0.0 - 1.2 mg/dL [facility] AST 33 0 - 37 U/L [facility] ALT 28 0 - 40 U/L [facility] GLOBULIN 3.3 1 - 4.8 g/dL [facility] EGFR 106 >59 mL/min/1.7 3m2 [facility] Comment:Estimated glomerular filtration rate calculated using the CKD-EPI refit equation. ANION GAP 13 10 - 20 mmol/L [facility] Blood 04/07/2022 10:4 4 AM EST 04/07/2022 10:49 AM EST us Shawanda Mcneal STOCK DRIER TENDER LAB BLOOD ORDERABLES Arin l Result [address] [address] * (ABNORMAL) CBC (04/07/2022 10:44 AM EST) WBC 6.03 4.00 - 11.00 K/uL [facility] RBC 4.93 3.72 - 5.30 M/uL [facility] HGB 13.2 11.4 - 15.9 g/dL [facility] HCT 43.0 34.2 - 46.8 % [facility] PLT 181 140 - 430 K/uL [facility] MCV 87.2 78.0 - 97.0 fL [facility] MCH 26.8 25.0 - 33.0 pg [facility] MCHC 30.7(L) 32.0 - 36.0 g/dL [facility] RDW 15.1 11.0 - 16.0 % [facility] MPV 12.3 8.4 - 12.8 fl [facility] Blood 04/07/2022 10:4 4 AM EST 04/07/2022 10:49 AM EST Shawanda Mcneal STOCK DRIER TENDER LAB BLOOD ORDERABLES Arin l Result [address] [address] * Immunoglobulin A (04/07/2022 10:44 AM EST) IgA 218 70 - 400 mg/dL [facility] Blood 04/07/2022 10:4 4 AM EST 04/07/2022 10:49 AM EST Shawanda Mcneal STOCK DRIER TENDER LAB BLOOD ORDERABLES Arin l Result [address] [address] * Tissue transglutaminase IgA (04/07/2022 10:44 AM EST) TTG IGA ANTIBODY <1.2 <4.0 (Negative) U/mL [facility] [address] Blood 04/07/2022 10:4 4 AM EST 04/07/2022 10:49 AM EST Shawanda Mcneal STOCK DRIER TENDER LAB BLOOD ORDERABLES Arin richey Result [facility] [address] [place] [address] documented in this encounter Visit Diagnoses Diagnosis Lower abdominal pain- Primary Abdominal pain, other specified site documented in this encounter Care Teams Crusher Screen Repairer Relationship Specialty Start Date End Date Ophelia Mckeon DO [address] [place] [id number] [email or web address] PCP - General Family Medicine 02/09/22 documented as of this encounter Additional Source Comments The information contained in this document represents components of the legal health record. It is not the complete legal health record.[facility]
--- OUTSIDE RECORDS SUMMARY | 2024-11-28 13:47 | XMS_ITS | Encounter Summary ---
Author Organization [facility] Address [address] [place] [address] Phone Care Team Providers Care Remelt Sugar Boiler Name Role Phone Ophelia Mckeon DO Primary Care Provider Encounter Details Date Type Department Care Team (Late st Contact Info) Description 04/08/2022 Procedure Pass [facility], Ct Scan - [address] [address] Social History Tobacco Use Types Packs/Day Years [...] on file documented as of this encounter Visit Diagnoses Not on filedocumented in this encounter Care Teams Remelt Sugar Boiler Relationship Specialty Start Date End Date Ophelia Mckeon DO [address] [place] [address] PCP - General Family Medicine 02/09/22 documented as of this encounter Additional Source Comments The information contained in this document represents components of the legal health record. It is not the complete legal health record.[facility]
--- OUTSIDE RECORDS SUMMARY | 2024-11-28 13:47 | XMS_ITS | Encounter Summary ---
Author Organization [facility] Address [address] [place] [address] Phone Care Team Providers Care Manpower Development Specialist Manager Name Role Phone Ophelia Mckeon DO Primary Care Provider + [phone] Reason for Referral * MRI/CAT Scan - Closed Specialty Diagnoses / Procedures Referred By Contac t Referred To Contact Radiology Diagnoses Lower abdominal pain Procedures CT Abdomen/Pelvis CHG CT SCAN,ABDOMENT AND PELVIS,W CONTRAST Shawanda Mcneal NP Phone: tel: fax: Referral ID Status Reason Start Date Expiration Date Visits Re quested Visits Authorized [id number] Closed 04/07/2022 10/04/2022 1 1 Encounter Details Date Type Department Care Team (Latest Contact Info) Description 04/08/2022 Transcribe Orders Virtual Department [address] [place] [address] Shawanda Mcneal NP [address] [place] [address] Lower abdominal pain (Primary Dx) Social History [...] documented as of this encounter Results * CT ABDOMEN/PELVIS WITH CONTRAST (04/19/2022 12:48 PM EST) Anatomical Region Laterality Modality Abdomen, Pelvis Computed Tomogra phy 04/19/2022 1:35 PM EST Impressions 04/19/2022 1:37 PM EST No acute abnormality. Incidental findings as above. Narrative 04/19/2022 1:[address] ABDOMEN/PELVIS WITH CONTRAST TECHNIQUE: Multidetector-row CT of the abdomen and pelvis was performed after administration of intravenous contrast using tailored dose modulation techniques. Images were reconstructed in the axial, coronal, and sagittal planes. COMPARISON: None FINDINGS: Lower Chest: Lung bases are clear. Moderate sized hiatal hernia. Liver: Mild fatty liver. Status post cholecystectomy. No biliary ductal dilatation. Spleen: No splenomegaly or focal lesions. Pancreas: No masses or ductal dilatation. Adrenal Glands: No nodules. Kidneys/Ureters: Multiple cysts in the left kidney. No solid masses, stones, or hydronephrosis. Bowel: Appendix normal. Diverticulosis without diverticulitis. Peritoneum/Retroperitoneum: No masses, pneumoperitoneum, or fluid. Lymph Nodes: No lymphadenopathy. Pelvic Organs/Bladder: No adnexal masses. Vessels: Aortic vascular calcifications. Bones/Soft Tissues: No destructive osseous lesions. Procedure Note Remi Bennett MD, EPIFANIO - 04/19/2022 CT ABDOMEN/PELVIS WITH CONTRAST TECHNIQUE: Multidetector-row CT of the abdomen and pelvis was performedafter administration of intravenous contrast using tailored dosemodulation techniques. Images were reconstructed in the axial, coronal,and sagittal planes. COMPARISON: None FINDINGS: Lower Chest: Lung bases are clear. Moderate sized hiatal hernia. Liver: Mild fatty liver. Status post cholecystectomy. No biliary ductaldilatation. Spleen: No splenomegaly or focal lesions. Pancreas: No masses or ductal dilatation. Adrenal Glands: No nodules. Kidneys/Ureters: Multiple cysts in the left kidney. No solid masses,stones, or hydronephrosis. Bowel: Appendix normal. Diverticulosis without diverticulitis. Peritoneum/Retroperitoneum: No masses, pneumoperitoneum, or fluid. Lymph Nodes: No lymphadenopathy. Pelvic Organs/Bladder: No adnexal masses. Vessels: Aortic vascular calcifications. Bones/Soft Tissues: No destructive osseous lesions. IMPRESSION: No acute abnormality. Incidental findings as above. Shawanda Mcneal ASSOCIATE SOFTWARE DEVELOPER IMG CT ABD/PELVIS Final R esult documented in this encounter Visit Diagnoses Diagnosis Lower abdominal pain- Primary Abdominal pain, other specified site Lower abdominal pain Abdominal pain, other specified site documented in this encounter Care Teams Manpower Development Specialist Manager Relationship Specialty Start Date End Date Ophelia Mckeon DO [address] [place] [id number] PCP - General Family Medicine 02/09/22 documented as of this encounter Additional Source Comments The information contained in this document represents components of the legal health record. It is not the complete legal health record.[facility]
--- OUTSIDE RECORDS SUMMARY | 2024-11-28 13:47 | XMS_ITS | Encounter Summary ---
Author Organization [facility] Address [address] [place] [address] Phone Care Team Providers Care Grade And Center Marker Name Role Phone Ophelia Mckeon Primary Care Provider Encounter Details Date Type Department Care Team (Latest Contact Info) Description 04/26/2022 Transcribe Orders [facility] [address] [address] Shawanda Mcneal, MIGUEL [address] [place] [address] Elevated alkaline phosphatase level (Primary Dx) Social History Tobacco Use Types [...] as of this encounter Results * (ABNORMAL) GGT (Gamma glutamyl transferase) (04/26/2022 8:23 AM EST) GGT 36(H) 7 - 33 U/L [facility] Blood 04/26/2022 8:23 AM EST 04/26/2022 8:26 AM EST Shawanda Mcneal SIGNAL WIRER LAB BLOOD ORDERABLES Arin l Result Performing Organization Address City/[facility]/ZIP Co de Phone Number [address] [address] * (ABNORMAL) Comprehensive metabolic panel (04/26/2022 8:23 AM EST) SODIUM 141 133 - 146 mmol/L [facility] POTASSIUM 4.8 3.3 - 5.1 mmol/L [facility] CHLORIDE 103 96 - 108 mmol/L [facility] CO2 29 21 - 35 mmol/L [facility] BUN 16 6 - 19 mg/dL [facility] CREATININE 0.60 0.5 - 1.5 mg/dL [facility] GLUCOSE 86 70 - 99 mg/dL [facility] ALBUMIN 4.3 3.9 - 4.8 g/dL [facility] TOTAL PROTEIN 7.4 6.5 - 8.0 g/dL [facility] CALCIUM 9.5 8.4 - 10.3 mg/dL [facility] ALKALINE PHOSPHATASE 138(H) 39 - 117 U/L [facility] TOTAL BILIRUBIN 0.2 0.0 - 1.2 mg/dL [facility] AST 33 0 - 37 U/L [facility] ALT 28 0 - 40 U/L [facility] GLOBULIN 3.1 1 - 4.8 g/dL [facility] EGFR 101 >59 mL/min/1.7 3m2 [facility] Comment:Estimated glomerular filtration rate calculated using the CKD-EPI refit equation. ANION GAP 14 10 - 20 mmol/L [facility] Blood 04/26/2022 8:23 AM EST 04/26/2022 8:26 AM EST Shawanda Mcneal SIGNAL WIRER LAB BLOOD ORDERABLES Arin l Result [address] [address] documented in this encounter Visit Diagnoses Diagnosis Elevated alkaline phosphatase level- Primary documented in this encounter Care Teams Grade And Center Marker Relationship Specialty Start Date End Date Ophelia Mckeon DO [address] [place] [phone] [email or web address] PCP - General Family Medicine 02/09/22 documented as of this encounter Additional Source Comments The information contained in this document represents components of the legal health record. It is not the complete legal health record.[facility]
== END 2024-11-28 13:30 | disposition home or self-care (01) ==
LOC: HO.RHES 12:18
PROVIDERS: PCP Family Medicine; Visit Provider Student in an Organized Health Care Education/Training Program
DX: M13.80 Other specified arthritis, unspecified site (principal); Z79.60 Long term (current) use of unspecified immunomodulators and immunosuppressants
CPT/HCPCS: 99213; G2211

== ENCOUNTER 2024-12-17 08:44 | Outpatient (REF) | payer OTHER, SELFPAY ==
[2024-12-17 13:39] LABS: Alanine Aminotransferase 56 U/L (0-31); Albumin Level 4.3 g/dL (3.5-5.0); Alkaline Phosphatase 125 U/L (39-117); Anion Gap 13 (12-20); Aspartate Amino Transferase 46 U/L (5-31); Blood Urea Nitrogen 9 mg/dL (9-16); Calcium 9.1 mg/dL (8.4-10.2); Carbon Dioxide 25 mmol/L (22-29); Chloride 106 mmol/L (96-108); Estimated Glomerular Filt Rate > 60; Potassium 4.0 mmol/L (3.3-5.1); Sodium 140 mmol/L (135-145); Total Protein 6.7 g/dL (6.5-8.0)
== END 2024-12-17 08:45 | disposition home or self-care (01) ==
LOC: HO.HKASLDS 08:44
PROVIDERS: PCP Nurse Practitioner; Visit Provider Student in an Organized Health Care Education/Training Program
DX: R74.01 Elevation of levels of liver transaminase levels (principal)
CPT/HCPCS: 36415; 80053